=== PATIENT | female | born 1950 | race Caucasian/White ===

== ENCOUNTER 2017-12-25 12:45 | Outpatient (CLI) | payer MEDICARE, OTHER | END 2017-12-25 23:59 | disposition home health service (06) | LOC: WOU 12:45 | PROVIDERS: ATTEND Surgery | DX: L89.322 Pressure ulcer of left buttock, stage 2 (principal); L89.312 Pressure ulcer of right buttock, stage 2; K59.03 Drug induced constipation; T40.2X5A Adverse effect of other opioids, initial encounter; Y92.89 Other specified places as the place of occurrence of the external cause; R32 Unspecified urinary incontinence; Z79.891 Long term (current) use of opiate analgesic; M48.00 Spinal stenosis, site unspecified; G89.29 Other chronic pain; L89.152 Pressure ulcer of sacral region, stage 2; S92.501G Displaced unspecified fracture of right lesser toe(s), subsequent encounter for fracture with delayed healing; W01.0XXD Fall on same level from slipping, tripping and stumbling without subsequent striking against object, subsequent encounter; M20.62 Acquired deformities of toe(s), unspecified, left foot; M20.61 Acquired deformities of toe(s), unspecified, right foot | CPT/HCPCS: A6209; A6402; G0463 ==

== ENCOUNTER 2018-01-08 13:41 | Outpatient (CLI) | payer MEDICARE, OTHER | END 2018-01-08 23:59 | disposition home health service (06) | LOC: WOU 13:41 | PROVIDERS: ATTEND Surgery | DX: L89.322 Pressure ulcer of left buttock, stage 2 (principal); L89.312 Pressure ulcer of right buttock, stage 2; R32 Unspecified urinary incontinence; K59.03 Drug induced constipation; T40.605A Adverse effect of unspecified narcotics, initial encounter; Y92.9 Unspecified place or not applicable; Z88.0 Allergy status to penicillin; G89.29 Other chronic pain; M54.9 Dorsalgia, unspecified; M48.00 Spinal stenosis, site unspecified; K58.2 Mixed irritable bowel syndrome; S92.501D Displaced unspecified fracture of right lesser toe(s), subsequent encounter for fracture with routine healing; W18.40XD Slipping, tripping and stumbling without falling, unspecified, subsequent encounter; M20.62 Acquired deformities of toe(s), unspecified, left foot; M20.61 Acquired deformities of toe(s), unspecified, right foot | CPT/HCPCS: A6209; A6402; G0463 ==

== ENCOUNTER 2018-01-15 14:30 | Outpatient (CLI) | payer MEDICARE, OTHER | END 2018-01-15 23:59 | disposition home health service (06) | LOC: WOU 14:30 | PROVIDERS: ATTEND Surgery | DX: Z09 Encounter for follow-up examination after completed treatment for conditions other than malignant neoplasm (principal); Z87.2 Personal history of diseases of the skin and subcutaneous tissue; K59.03 Drug induced constipation; T40.2X5A Adverse effect of other opioids, initial encounter; Z79.891 Long term (current) use of opiate analgesic; R32 Unspecified urinary incontinence; M48.00 Spinal stenosis, site unspecified; G89.29 Other chronic pain; M20.62 Acquired deformities of toe(s), unspecified, left foot; M20.61 Acquired deformities of toe(s), unspecified, right foot; S92.501G Displaced unspecified fracture of right lesser toe(s), subsequent encounter for fracture with delayed healing; W01.0XXD Fall on same level from slipping, tripping and stumbling without subsequent striking against object, subsequent encounter; Y92.89 Other specified places as the place of occurrence of the external cause | CPT/HCPCS: A6402; G0463 ==

== ENCOUNTER → 2018-05-20 | Emergency (ER) | payer MEDICARE, OTHER ==
[~2018-05-20] VITALS: Ht 149.9 cm; Wt 49.9 kg
[~2018-05-20] MED LIST: DIAZEPAM 5 MG/ML 2 ML DISP.SYRIN IM ONE
[2018-05-20 06:00] VITALS: BP 149/69
--- NOTE | 2018-05-20 06:43 | NUR ---
pt seen by kayla mancera, with orders given.
== END | disposition home or self-care (01) ==
LOC: ER 06:01
DX: M54.5 Low back pain (principal); M48.00 Spinal stenosis, site unspecified; Z87.442 Personal history of urinary calculi; Z90.49 Acquired absence of other specified parts of digestive tract; Z88.0 Allergy status to penicillin; Z60.2 Problems related to living alone
CPT/HCPCS: 99283; A4606; Z7610

== ENCOUNTER 2018-07-03 18:54 | Inpatient (IN) | payer MEDICARE, OTHER ==
[~2018-07-03] VITALS: Ht 160 cm; Wt 61.2 kg
[2018-07-03] MEDS ORDERED: KETOROLAC TROMETHAMINE INJ 30 MG/ML VIAL IV ONE (19:30)
[2018-07-03] MEDS ORDERED: LORAZEPAM INJ 2 MG/ML VIAL IVP ONE (19:30)
[2018-07-03 19:56] LABS: BASOPHILS % (AUTO) 0.5 % (0.0-2.0); EOSINOPHILS % (AUTO) 0.6 % (0.0-6.0); HEMATOCRIT 40 % (33-45); HEMOGLOBIN 12.9 g/dL (11.5-14.8); LYMPHOCYTES # (AUTO) 1.4 /CMM (0.8-4.8); LYMPHOCYTES % (AUTO) 19.4 % (20.0-44.0); MEAN CORPUSCULAR HGB CONC 33 g/dl (31.0-36.0); MEAN CORPUSCULAR VOLUME 87 fL (82-100); MONOCYTES # (AUTO) 0.8 /CMM (0.1-1.30); MONOCYTES % (AUTO) 10.1 % (2.0-12.0); NEUTROPHILS # (AUTO) 5.3 /CMM (1.8-8.9); NEUTROPHILS % (AUTO) 69.4 % (43.0-81.0); PLATELET COUNT (AUTO) 448 /CMM (150-450); RED BLOOD CELL COUNT(AUTO) 4.56 MIL/uL (4.0-5.2); WHITE BLOOD COUNT (AUTO) 7.5 K/uL (4.3-11.0)
[2018-07-03] MEDS ORDERED: LORAZEPAM INJ 2 MG/ML VIAL IM ONE (20:00)
[2018-07-03] MEDS ORDERED: HALOPERIDOL LACTATE INJ 5 MG/ML VIAL IM ONE (20:00)
[2018-07-03 20:03] LABS: CALCIUM, SERUM 8.9 mg/dL (8.5-10.1); CARBON DIOXIDE 30 mmol/L (21-32); CHLORIDE 102 mmol/L (98-107); GLUCOSE 102 mg/dL (74-106); POTASSIUM 3.3 mmol/L (3.5-5.1); SODIUM SERUM 140 mmol/L (136-145); UREA NITROGEN, BLOOD 11 mg/dL (7-18)
[2018-07-03 20:09] LABS: ALANINE AMINOTRANSFERASE 20 U/L (12-78); ALBUMIN 3.1 g/dL (3.4-5.0); ALCOHOL, BLOOD < 3 mg/dL (0-0); ALKALINE PHOSPHATASE 132 U/L (46-116); ASPARTATE AMINOTRANSFERASE 14 U/L (15-37); BILIRUBIN,DIRECT 0.1 mg/dL (0.0-0.2); BILIRUBIN,TOTAL 0.3 mg/dL (0.2-1.0); TOTAL PROTEIN, SERUM 6.8 g/dL (6.4-8.2)
[2018-07-03 20:10] LABS: ACETAMINOPHEN < 2 ug/ml (10-30); SALICYLATE < 2.8 mg/dL (2.8-20.0)
[2018-07-03] MEDS ORDERED: HALOPERIDOL LACTATE INJ 5 MG/ML VIAL ONE (20:14)
[2018-07-03] MEDS ORDERED: LORAZEPAM INJ 2 MG/ML VIAL ONE (20:15)
--- NOTE | 2018-07-03 20:44 | NUR ---
ADMIT TO ROOM 213-A
--- NOTE | 2018-07-03 20:46 | NUR ---
ordered meds given
--- NOTE | 2018-07-03 20:46 | NUR ---
urine sample collected.
[2018-07-03 20:53] LABS: BILIRUBIN,URINE Negative (NEGATIVE); BLOOD, URINE Negative Ery/uL (NEGATIVE); COLOR,URINE Yellow (YELLOW); KETONES,URINE Negative (NEGATIVE); LEUKOCYTE ESTERASE ,URINE Negative (NEGATIVE); NITRITE, URINE Negative (NEGATIVE); PH,URINE 8.5 (5.0-8.0); PROTEIN,URINE Negative (NEGATIVE); UGLUCOSE Negative (NEGATIVE)
[2018-07-03 20:54] LABS: APPEARANCE,URINE HAZY (CLEAR)
[2018-07-03 21:09] LABS: BACTERIA,URINE Few /HPF (None Seen); RBC,URINE 0-2 /HPF (0-2); SQUAMOUS EPITHELIAL CELL,UR Few /HPF (None Seen); URINE AMORPHOUS URATE Many /HPF (None Seen); WBC,URINE 0-2 /HPF (0-3)
--- NOTE | 2018-07-03 21:39 | NUR ---
REPORT GIVEN TO GPS RN FOR Pt's DIPIKA AND SAFETY.
[2018-07-03] MEDS ORDERED: ACETAMINOPHEN 325 MG TABLET PO PRN (22:30)
[2018-07-03] MEDS ORDERED: MAGNESIUM HYDROXIDE 30 ML UDC PO PRN (22:30)
[2018-07-03] MEDS ORDERED: MAG HYDROX/AL HYDROX/SIMETH 30 ML UDC PO PRN (22:30)
[2018-07-03] MEDS: TEMAZEPAM 7.5 MG CAPSULE PO PRN (22:49)
[2018-07-04] MEDS: LORAZEPAM 0.5 MG TABLET PO PRN ×2 (01:27→15:49)
--- NOTE | 2018-07-04 05:07 | NUR ---
ADMITTED THIS 67 YEARS OLD FEMALE FROM E.R PATIENT ACCOMPANIED BY E.R STAFF, PATIENT WAS PLACE ON 5150 HOLD DUE TO GRAVELY DISABLE, PSYCHOSIS,NOS PATIENT IS ALERT, X 2-3 AMBULATORY WITH STEADY GAIT, SINCE PATIENT GOT ADMITTED PATIENT IS YELLING SCREAMING, NON- STOP ATIVAN 0.5 MG AND RESTORIL ADMINISTERED TO THE PATIENT BUT NON- EFFECTIVE, PATIENT CONTINUES SCREAMING, WHEN ASK PATIENT WHY SHE IS SCREAMING PATIENT RESPONSE I DON'T KNOW SKIN ASSESSMENT IS DONE PATIENT HAS A BRUISES, AND SCAB IN HER RIGHT HAND AND RIGHT KNEE, OPEN SKIN IN SACRAL AREA PIC IS TAKEN AND PLACED IN CHART WOUND CONSULT ORDER Z-GUARD ORDER WILL CONTINUES TO MAKE EVERY 15 MINS ROUND FOR PATIENTS SAFETY AND FALL .
[2018-07-04] MEDS ORDERED: GABA-534 PO (06:34)
[2018-07-04] MEDS ORDERED: ALPR0.255 PO (06:34)
[2018-07-04] MEDS ORDERED: DICY20TA11 PO (06:34)
[2018-07-04] MEDS ORDERED: LUBI24CA5 PO (06:34)
[2018-07-04] MEDS ORDERED: LEVO500T75 PO (06:34)
[2018-07-04 08:00] VITALS: BP 125/58
--- NOTE | 2018-07-04 11:31 | NUR ---
PT AT THIS TIME WAS NOTED TO HAVE 3 KYLE ON THE BACK OF THE HEAD
[2018-07-04] MEDS ORDERED: POTASSIUM CHLORIDE 20 MEQ TAB.PRT.SR PO ONE (14:00)
[2018-07-04] MEDS: LEVOFLOXACIN (500MG) 500 MG TABLET PO SCH (14:00)
[2018-07-04 16:00] VITALS: BP 122/66
[2018-07-04] MEDS: DICYCLOMINE HCL 10 MG CAPSULE PO SCH (16:03)
[2018-07-04] MEDS: GABAPENTIN 100 MG CAPSULE PO SCH (16:03)
[2018-07-04 19:56] VITALS: BP 121/59
[2018-07-04] MEDS: IBUPROFEN 400 MG TABLET PO PRN (20:20)
[2018-07-04] MEDS: MIRTAZAPINE 15 MG TABLET PO SCH (20:21)
[2018-07-04] MEDS: TEMAZEPAM 7.5 MG CAPSULE PO PRN (22:25)
[2018-07-05] MEDS: IBUPROFEN 400 MG TABLET PO PRN ×3 (02:02→20:42)
[2018-07-05 06:55] LABS: CHOLESTEROL 205 mg/dL (<200); CREATININE 0.6 mg/dL (0.6-1.3); HDL CHOLESTEROL 65 mg/dL (40-60); LDL 127 mg/dL (0-99); TRIGLYCERIDES 92 mg/dL (30-150)
[2018-07-05 08:00] VITALS: BP 142/85
[2018-07-05] MEDS ORDERED: GABAPENTIN 300 MG CAPSULE PO SCH (09:00)
[2018-07-05] MEDS: GABAPENTIN 100 MG CAPSULE PO SCH ×2 (09:11→17:29)
[2018-07-05] MEDS: LEVOFLOXACIN (500MG) 500 MG TABLET PO SCH (09:12)
[2018-07-05] MEDS: DICYCLOMINE HCL 10 MG CAPSULE PO SCH ×3 (09:12→17:29)
--- NOTE | 2018-07-05 09:30 | NUR ---
GPS/RN-NOTES DID BODY ASSESSMENT TO THE PATIENT AND PICTURES TAKEN AND PUT IN THE CHART.
--- NOTE | 2018-07-05 12:30 | NUR ---
GPS/RN-NOTES PATIENT SISTER ALMA VEGA .CALLED AND WANTS TO KNOW THE STATUS OF THE PATIENT. PATIENT SIGN CONSENT TO RELEASED INFORMATION TO HER SISTER.
--- NOTE | 2018-07-05 14:47 | NUR ---
GPS/RN-NOTES PATIENT C/O LOWER BACK PAIN. MOTRIN 400MG P.O GIVEN PRN ORDER. WILL CONT. MONITORING FOR SAFETY AND BEHAVIOR.
[2018-07-05 17:25] VITALS: BP 102/74
[2018-07-05] MEDS: LORAZEPAM 0.5 MG TABLET PO PRN (17:29)
--- NOTE | 2018-07-05 17:30 | NUR ---
GPS/RN-NOTES NOTED PATIENT WITH SCREAMING AND YELLING, UNABLE TO REDIRECT. ATIVAN 0.5MG P.O GIVEN PRN ORDER. WILL CONT. ON 1:1 MONITORING FOR SAFETY AND BEHAVIOR.
--- NOTE | 2018-07-05 19:30 | NUR ---
RN INITIAL NOTES: RECEIVED REPORT, PT IN BED, A/O X2, 1:1 SITTER AT BED SIDE, PT IS CALM AT THIS TIME, COOPERATIVE BUT PER REPORT WITH EPISODE OF SCREAMING ANDYELLING. PT NEEDS FREQUENT REDIRECTION. ENCOURAGED AND HELPED REPOSITIONING EVERY 2 HRS. PT COMPLIANT WITH MEDICATION, SWALLOWS PILLS WHOLE. DENIES ANY SI/HI. WILL CONTINUE MONITORING PT SAFETY Q15 MINS AND FOR ANY CHANGES IN BEHAVIOR.
[2018-07-05 20:00] VITALS: BP 122/56
[2018-07-05] MEDS: MIRTAZAPINE 15 MG TABLET PO SCH (20:12)
--- NOTE | 2018-07-05 20:43 | NUR ---
PRN MOTRIN: PT C/O GENERALIZED PAIN, 12/02 REQUESTING FOR HER MOTRIN, PRN MOTRIN ADMINISTERED AT THIS TIME, WILL CONTINUE TO MONITOR AND REASSESS PT
[2018-07-05] MEDS: ATORVASTATIN 10 MG TABLET PO SCH (21:14)
[2018-07-05] MEDS: TEMAZEPAM 7.5 MG CAPSULE PO PRN (21:27)
--- NOTE | 2018-07-05 21:27 | NUR ---
PRN REQUEST FOR RESTORIL: PT REQUESTING FOR SLEEPING PILL, PRN RESTORIL ADMINISTERED AT THIS TIME.
[2018-07-06] MEDS: IBUPROFEN 400 MG TABLET PO PRN ×2 (04:06→16:21)
--- NOTE | 2018-07-06 04:06 | NUR ---
PRN MOTRIN: PT C/O BODY ACHE GENERALIZED PRN MOTRIN ADMINISTERED AT THIS TIME.
[2018-07-06] MEDS: LORAZEPAM 0.5 MG TABLET PO PRN ×2 (05:10→14:07)
--- NOTE | 2018-07-06 05:10 | NUR ---
PRN ATIVAN: REQUESTED BY PT FOR C/O ANXIOUSNESS, PRN ATIVAN ADMINISTERED AT THIS TIME
[2018-07-06 08:00] VITALS: BP 120/76
[2018-07-06] MEDS: LEVOFLOXACIN (500MG) 500 MG TABLET PO SCH (08:42)
[2018-07-06] MEDS: GABAPENTIN 100 MG CAPSULE PO SCH ×2 (08:42→12:26)
[2018-07-06] MEDS: DICYCLOMINE HCL 10 MG CAPSULE PO SCH ×3 (08:42→16:20)
[2018-07-06] MEDS ORDERED: Z GUARD REMEDY 4 OZ OINT TP PRN (10:30)
[2018-07-06] MEDS ORDERED: HYDROGEL DRESSING 90 GM TUBE TP PRN (10:30)
--- NOTE | 2018-07-06 10:30 | NUR ---
WOUND CARE CONSULT: PT PRESENTS WITH SACRAL ULCER, UNSTAGEABLE AND BILATERAL FOOT BUNIONS WITH SCARRING, PRESENT ON ADMISSION. PT HAS MULTIPLE SCARS ON BODY. PT ABLE TO TURN AND REPOSITION IN BED AND AMBULATORY BUT INCONTINENT. ALL SKIN PROTECTION AND WOUND CARE RECOMMENDATIONS DISCUSSED WITH NURSING STAFF AND SURGICAL TEAM. WILL SEE PRN. AYALA IN AGREEMENT WITH PLAN OF CARE. Addendum: 07/06/18 at 1032 by KARLA FUENTES WNDNU Amended: Links added.
[2018-07-06 11:22] LABS: BASOPHILS # (AUTO) 0.1 /CMM (0.0-0.2); EOSINOPHILS % (AUTO) 0.4 % (0.0-6.0); HEMATOCRIT 40 % (33-45); HEMOGLOBIN 12.8 g/dL (11.5-14.8); LYMPHOCYTES # (AUTO) 1.3 /CMM (0.8-4.8); LYMPHOCYTES % (AUTO) 20.7 % (20.0-44.0); MEAN CORPUSCULAR HGB CONC 32 g/dl (31.0-36.0); MEAN CORPUSCULAR VOLUME 89 fL (82-100); MONOCYTES # (AUTO) 0.6 /CMM (0.1-1.30); MONOCYTES % (AUTO) 10.4 % (2.0-12.0); NEUTROPHILS # (AUTO) 4.1 /CMM (1.8-8.9); NEUTROPHILS % (AUTO) 67.5 % (43.0-81.0); PLATELET COUNT (AUTO) 394 /CMM (150-450); RDW COEFFICIENT OF VARIATION 15.6 (11.5-15.0); RED BLOOD CELL COUNT(AUTO) 4.44 MIL/uL (4.0-5.2); WHITE BLOOD COUNT (AUTO) 6.1 K/uL (4.3-11.0)
--- NOTE | 2018-07-06 11:23 | NUR ---
ISIDORO called the pt's sister, Morena ([phone]), and conducted parts of the assessment with her because the pt was confused. The initial discharge plan for the pt to return to [facility] was discussed.
--- NOTE | 2018-07-06 11:25 | NUR ---
Initial Discharge Plan: Pt was admitted from a longterm facility called [facility] located at [address] [place] [address]; . Per pt, she did not state whether or not she would want to return to the facility. SW contacted the facility and was told that she would be assessed and then her return to the facility is contingent upon the assessment. ISIDORO will work with the pt and the MD regarding discharge planning. SW will form a safe and proper discharge.
--- NOTE | 2018-07-06 11:25 | NUR ---
ISIDORO called [facility] and spoke to Gisela ([phone]) who stated that she will come to assess the pt later today even though she is aware that the pt is not ready for discharge at this moment.
--- NOTE | 2018-07-06 11:41 | NUR ---
ISIDORO received a call from the pt's doctor's office, Dr. Blood ([phone]). ISIDORO put them on hold and asked the pt if it would be authorized to speak to them about her current state. The pt consented. ISIDORO informed Margot from Dr. Blood's office that the pt is no longer screaming and has been cooperative with the medications. The SW then informed them that the plan is for her to return to the previous facility and that there is no discharge date as of right now.
[2018-07-06 12:06] LABS: ALBUMIN 3.1 g/dL (3.4-5.0); BILIRUBIN,TOTAL 0.4 mg/dL (0.2-1.0); CREATININE 0.7 mg/dL (0.6-1.3); MAGNESIUM 2.2 mg/dL (1.8-2.4); POTASSIUM 3.6 mmol/L (3.5-5.1); TOTAL PROTEIN, SERUM 6.8 g/dL (6.4-8.2)
[2018-07-06] MEDS: HYDROGEL DRESSING 90 GM TUBE TP SCH ×2 (12:17→12:19)
[2018-07-06] MEDS: Z GUARD REMEDY 2 OZ OINT TP SCH (12:22)
--- NOTE | 2018-07-06 14:27 | NUR ---
GPS/RN-NOTES PATIENT STATED" I WANT MY ATIVAN". ATIVAN 0.5MG P.O GIVEN PRN ORDER. WILL CONT. ON 1:1 MONITORING FOR SAFETY AND BEHAVIOR.
[2018-07-06 16:00] VITALS: BP 122/72
--- NOTE | 2018-07-06 16:27 | NUR ---
GPS/RN-NOTES PATIENT C/O LOWER BACK PAIN. MOTRIN 400MG P.O GIVEN PRN ORDER. ON 1:1 MONITORING FOR SAFETY
[2018-07-06] MEDS ORDERED: GABAPENTIN 100 MG CAPSULE PO SCH (17:00)
--- NOTE | 2018-07-06 17:53 | NUR ---
GPS/RN-NOTES SEEN BY DR. BOWIE (PAIN MANAGEMENT)
[2018-07-06 20:00] VITALS: BP 122/73
[2018-07-06] MEDS: MIRTAZAPINE 15 MG TABLET PO SCH (20:16)
[2018-07-06] MEDS: HYDROCODONE/APAP 5/325MG 1 EACH TABLET PO PRN (20:17)
[2018-07-06] MEDS: ATORVASTATIN 10 MG TABLET PO SCH (21:26)
[2018-07-06] MEDS: TEMAZEPAM 7.5 MG CAPSULE PO PRN (21:27)
[2018-07-06] MEDS: DULOXETINE HCL 30 MG CAPSULE.DR PO SCH (21:27)
[2018-07-07] MEDS: HYDROCODONE/APAP 10/325MG 1 EA TABLET PO PRN ×2 (00:48→19:36)
[2018-07-07] MEDS: IBUPROFEN 400 MG TABLET PO PRN ×2 (04:37→22:27)
[2018-07-07] MEDS: HYDROCODONE/APAP 5/325MG 1 EACH TABLET PO PRN ×2 (05:56→14:27)
[2018-07-07 08:00] VITALS: BP 127/71
[2018-07-07] MEDS: LEVOFLOXACIN (500MG) 500 MG TABLET PO SCH (08:45)
[2018-07-07] MEDS: GABAPENTIN 100 MG CAPSULE PO SCH ×3 (08:45→16:52)
[2018-07-07] MEDS: DICYCLOMINE HCL 10 MG CAPSULE PO SCH ×3 (08:45→16:52)
[2018-07-07] MEDS: Z GUARD REMEDY 2 OZ OINT TP SCH (08:48)
[2018-07-07] MEDS: HYDROGEL DRESSING 90 GM TUBE TP SCH (11:09)
--- NOTE | 2018-07-07 11:41 | NUR ---
GPS/RN-NOTES PAINTING DEPARTMENT SUPERVISOR WAS NOT IN THE UNIT AT THIS TIME.
[2018-07-07 16:11] VITALS: BP 132/82
--- NOTE | 2018-07-07 19:36 | NUR ---
GPS-RN PATIENT C/O BACK PAIN ON A PAIN SCALE OF 8/10. ADMINISTERED NORCO 10/325MG PO ORDERED PER PT'S REQUEST. WILL CONTINUE TO MONITOR.
[2018-07-07 20:00] VITALS: BP 123/75
[2018-07-07] MEDS: MIRTAZAPINE 15 MG TABLET PO SCH (20:05)
[2018-07-07] MEDS: DULOXETINE HCL 30 MG CAPSULE.DR PO SCH (21:16)
[2018-07-07] MEDS: ATORVASTATIN 10 MG TABLET PO SCH (21:16)
[2018-07-07] MEDS: TEMAZEPAM 7.5 MG CAPSULE PO PRN (22:27)
--- NOTE | 2018-07-07 22:27 | NUR ---
GPS-RN PATIENT C/O BACK PAIN, ON A PAIN SCALE OF 3/10. ADMINISTERED MOTRIN 400MG PO ORDERED PER PT'S REQUEST. WILL CONTINUE TO MONITOR.
[2018-07-08] MEDS: HYDROCODONE/APAP 5/325MG 1 EACH TABLET PO PRN ×3 (01:27→15:40)
--- NOTE | 2018-07-08 01:27 | NUR ---
GPS-RN PATIENT C/O BACK PAIN, ON A PAIN SCALE OF 7/10. ADMINISTERED NORCO 5/325MG PO ORDERED PER PT'S REQUEST. WILL CONTINUE TO MONITOR.
[2018-07-08] MEDS: LEVOFLOXACIN (500MG) 500 MG TABLET PO SCH (08:40)
[2018-07-08] MEDS: GABAPENTIN 100 MG CAPSULE PO SCH ×4 (08:40→17:18)
[2018-07-08 08:41] VITALS: BP 150/72
[2018-07-08] MEDS: DICYCLOMINE HCL 10 MG CAPSULE PO SCH ×3 (08:41→17:18)
[2018-07-08] MEDS: Z GUARD REMEDY 2 OZ OINT TP SCH (08:44)
--- NOTE | 2018-07-08 08:44 | NUR ---
RN - MANUAL ADMIN NOTES Unable to scan Z-guard. Please see Mauri STEVENS
[2018-07-08] MEDS: LORAZEPAM 0.5 MG TABLET PO PRN ×2 (11:46→21:02)
--- NOTE | 2018-07-08 11:46 | NUR ---
SA RN - PRN NOTES Patient is agitated and restless and requested for Ativan.
[2018-07-08 16:00] VITALS: BP 102/55
[2018-07-08 20:00] VITALS: BP 114/71
[2018-07-08] MEDS: MIRTAZAPINE 15 MG TABLET PO SCH (20:31)
--- NOTE | 2018-07-08 21:02 | NUR ---
GPS-RN PATIENT C/O FEELING ANXIOUS AND REQUESTED FOR ATIVAN. ADMINISTERED ATIVAN 0.5MG PO ORDERED. WILL CONTINUE TO MONITOR [id number] FOR SAFETY AND BEHAVIOR.
[2018-07-08] MEDS: ATORVASTATIN 10 MG TABLET PO SCH (21:15)
[2018-07-08] MEDS: DULOXETINE HCL 30 MG CAPSULE.DR PO SCH (21:15)
[2018-07-08] MEDS: IBUPROFEN 400 MG TABLET PO PRN (21:41)
--- NOTE | 2018-07-08 21:41 | NUR ---
GPS-RN PATIENT C/O BACK PAIN, ON A PAIN SCALE OF 3/10. ADMINISTERED MOTRIN 400MG PO ORDERED PER PT'S REQUEST. WILL CONTINUE TO MONITOR.
[2018-07-08] MEDS: TEMAZEPAM 7.5 MG CAPSULE PO PRN (21:46)
[2018-07-09] MEDS: HYDROCODONE/APAP 5/325MG 1 EACH TABLET PO PRN ×2 (00:01→14:15)
--- NOTE | 2018-07-09 00:02 | NUR ---
GPS-RN PATIENT C/O BACK PAIN, ON A PAIN SCALE OF 7/10. ADMINISTERED NORCO 5/325MG PO ORDERED PER PT'S REQUEST. WILL CONTINUE TO MONITOR.
[2018-07-09] MEDS: HYDROCODONE/APAP 10/325MG 1 EA TABLET PO PRN (04:28)
--- NOTE | 2018-07-09 04:28 | NUR ---
GPS-RN PATIENT C/O LOWER BACK PAIN ON A PAIN SCALE OF 8/10. ADMINISTERED NORCO 10/325MG PO ORDERED PER PT'S REQUEST. WILL CONTINUE TO MONITOR AND REASSESS FOR PAIN.
[2018-07-09] MEDS: LORAZEPAM 0.5 MG TABLET PO PRN ×2 (06:04→16:05)
--- NOTE | 2018-07-09 06:07 | NUR ---
GPS-RN PATIENT C/O FEELING ANXIOUS AND REQUESTED FOR ATIVAN. ADMINISTERED ATIVAN 0.5MG PO ORDERED. WILL CONTINUE TO MONITOR [id number] FOR SAFETY AND BEHAVIOR.
[2018-07-09 08:00] VITALS: BP 100/57
[2018-07-09] MEDS: DICYCLOMINE HCL 10 MG CAPSULE PO SCH ×3 (08:44→17:00)
[2018-07-09] MEDS: GABAPENTIN 100 MG CAPSULE PO SCH ×3 (08:44→17:00)
[2018-07-09] MEDS: HYDROGEL DRESSING 90 GM TUBE TP SCH (08:45)
[2018-07-09] MEDS: Z GUARD REMEDY 2 OZ OINT TP SCH (08:46)
--- NOTE | 2018-07-09 15:10 | NUR ---
SW called [facility] and spoke to Gisela ([phone]) who stated that she will come to assess the pt the following day because she was unable to do so last week.
[2018-07-09 16:00] VITALS: BP 102/58
--- NOTE | 2018-07-09 16:05 | NUR ---
PT C/O ANXIETY" MEDICATED WITH ATIVAN 0.5 MG P.O X1 WILL CONTINUE TO MONITOR .
[2018-07-09 20:28] VITALS: BP 126/75
[2018-07-09] MEDS: MIRTAZAPINE 15 MG TABLET PO SCH (20:28)
[2018-07-09] MEDS ORDERED: MIRTAZAPINE 15 MG TABLET PO ONE (21:00)
[2018-07-09] MEDS: DULOXETINE HCL 30 MG CAPSULE.DR PO SCH (21:08)
[2018-07-09] MEDS: ATORVASTATIN 10 MG TABLET PO SCH (21:12)
[2018-07-09] MEDS: TEMAZEPAM 7.5 MG CAPSULE PO PRN (22:00)
[2018-07-10] MEDS: LORAZEPAM 0.5 MG TABLET PO PRN ×2 (01:09→13:55)
[2018-07-10] MEDS: DULOXETINE HCL 30 MG CAPSULE.DR PO SCH ×2 (08:20→21:09)
[2018-07-10] MEDS: GABAPENTIN 100 MG CAPSULE PO SCH ×3 (08:20→18:34)
[2018-07-10] MEDS: DICYCLOMINE HCL 10 MG CAPSULE PO SCH ×3 (08:20→16:47)
[2018-07-10] MEDS: Z GUARD REMEDY 2 OZ OINT TP SCH (08:25)
[2018-07-10] MEDS: HYDROGEL DRESSING 90 GM TUBE TP SCH (08:28)
--- NOTE | 2018-07-10 08:30 | NUR ---
ISIDORO spoke to Margot ([phone]) from Dr. Blood's office who asked to speak to the pt's nurse so the ISIDORO passed on the message.
[2018-07-10 08:40] VITALS: BP 109/59
[2018-07-10] MEDS: HYDROCODONE/APAP 10/325MG 1 EA TABLET PO PRN ×3 (09:23→23:30)
--- NOTE | 2018-07-10 09:23 | NUR ---
[id number]: GAVE NORCO 10/325 MG PO UPON PT REQUEST AND WILL CONTINUE TO MONITOR FOR EFFECTIVENESS OF MEDICATION
--- NOTE | 2018-07-10 09:44 | NUR ---
Margot ([phone]) from Dr. Blood's office called the SW and asked the SW to redirect her to the pt's nurse for the day.
--- NOTE | 2018-07-10 13:55 | NUR ---
[id number]: GAVE ATIVAN 0.5 MG PO DUE TO INCREASED ANXIETY UPON PT REQUEST AND WILL CONTINUE TO MONITOR FOR EFFECTIVENESS OF MEDICATION
--- NOTE | 2018-07-10 13:57 | NUR ---
ISIDORO spoke to Margot ([phone]) from Dr. Blood's office and informed her that the nurse for the pt today will be calling soon.
[2018-07-10 16:00] VITALS: BP 145/76
--- NOTE | 2018-07-10 16:19 | NUR ---
SW spoke to Delores Castle ([phone]), pts friend, about the pt's discharge plan.
--- NOTE | 2018-07-10 16:47 | NUR ---
[id number]: GAVE NORCO 10/325 MG PO DUE TO PT REQUEST FOR 810 GENERALIZED PAIN AND WILL CONTINUE TO MONITOR FOR EFFECTIVENESS OF MEDICATION
[2018-07-10] MEDS: MIRTAZAPINE 15 MG TABLET PO SCH (20:26)
[2018-07-10 21:03] VITALS: BP 110/83
[2018-07-10] MEDS: ATORVASTATIN 10 MG TABLET PO SCH (21:09)
[2018-07-10] MEDS: TEMAZEPAM 7.5 MG CAPSULE PO PRN (22:55)
--- NOTE | 2018-07-10 23:30 | NUR ---
[id number]: GAVE NORCO 10/325 MG PO PER PT. REQUEST FOR 810 GENERALIZED PAIN AND WILL CONTINUE TO MONITOR FOR EFFECTIVENESS OF MEDICATION
[2018-07-11 08:00] VITALS: BP 115/57
[2018-07-11] MEDS: HYDROCODONE/APAP 10/325MG 1 EA TABLET PO PRN (08:57)
[2018-07-11] MEDS: DICYCLOMINE HCL 10 MG CAPSULE PO SCH ×3 (08:57→16:28)
[2018-07-11] MEDS: Z GUARD REMEDY 2 OZ OINT TP SCH (08:58)
[2018-07-11] MEDS: DULOXETINE HCL 30 MG CAPSULE.DR PO SCH ×2 (09:01→20:49)
[2018-07-11] MEDS: HYDROGEL DRESSING 90 GM TUBE TP SCH (09:05)
[2018-07-11] MEDS: GABAPENTIN 300 MG CAPSULE PO SCH ×3 (09:50→16:28)
[2018-07-11] MEDS ORDERED: GABAPENTIN 300 MG CAPSULE PO SCH ×2 (10:00)
[2018-07-11] MEDS: LORAZEPAM 0.5 MG TABLET PO PRN ×2 (11:17→20:55)
--- NOTE | 2018-07-11 15:50 | NUR ---
ISIDORO garciaxed the most recent discharge packed to [facility] (attn: Gisela) to the fax number: [phone]. Addendum: 07/12/18 at 0928 by GASPER CHAUDHRY Packet
[2018-07-11 16:13] VITALS: BP 108/67
[2018-07-11 20:31] VITALS: BP 115/72
[2018-07-11] MEDS: MIRTAZAPINE 15 MG TABLET PO SCH (20:49)
[2018-07-11] MEDS: ATORVASTATIN 10 MG TABLET PO SCH (21:01)
[2018-07-11] MEDS: HYDROCODONE/APAP 5/325MG 1 EACH TABLET PO PRN (22:31)
[2018-07-12] MEDS: HYDROCODONE/APAP 5/325MG 1 EACH TABLET PO PRN (07:04)
[2018-07-12 08:32] VITALS: BP 129/56
[2018-07-12] MEDS: LORAZEPAM 0.5 MG TABLET PO PRN (09:14)
[2018-07-12] MEDS: DICYCLOMINE HCL 10 MG CAPSULE PO SCH ×2 (09:14→13:04)
[2018-07-12] MEDS: GABAPENTIN 300 MG CAPSULE PO SCH ×2 (09:14→13:04)
[2018-07-12] MEDS: DULOXETINE HCL 30 MG CAPSULE.DR PO SCH (09:14)
[2018-07-12] MEDS: Z GUARD REMEDY 2 OZ OINT TP SCH (09:15)
--- NOTE | 2018-07-12 09:24 | NUR ---
Gisela ([phone]), [facility], called the and stated that the pt is no longer accepted to the facility.
--- NOTE | 2018-07-12 09:28 | NUR ---
ISIDORO faxed a referral to [facility] to the fax number: [phone].
--- NOTE | 2018-07-12 09:32 | NUR ---
ISIDORO called the pt's sister, Morena ([phone]), and informed her that the pt was planned for discharge back to the facility that she came from but the facility decided not to accept her today. ISIDORO informed her that she is trying to place the pt in a facility that the psychiatrist approves of.
[2018-07-12] MEDS: HYDROCODONE/APAP 10/325MG 1 EA TABLET PO PRN (10:20)
--- NOTE | 2018-07-12 11:41 | NUR ---
Pt's friend, Keren ([phone]), called the SW and asked about the discharge plan. SW informed her that the pt will be going to [facility].
--- NOTE | 2018-07-12 12:07 | NUR ---
DR. BRUSH GAVE AN ORDER TO D/C HOLD AND D/C TO [facility] AND TO CONTINUE SAME MEDS AND TO FOLLOW UP WITH PSYCH AND MEDICAL DOCTORS.
[2018-07-12] MEDS: HYDROGEL DRESSING 90 GM TUBE TP SCH (12:34)
--- NOTE | 2018-07-12 13:22 | NUR ---
ISIDORO faxed the pain consultation notes to the pt's primary physician, Dr. Blood, to the fax number: [phone].
--- NOTE | 2018-07-12 14:00 | NUR ---
DISCHARGED PT TO [facility] VIA AMBULANCE.WITH STABLE V/S.WITH NO SI/HI.PT REMAINS ALERT AND ORIENTED AND CONFUSED.AMBULATES AD EVELYN.TX DONE TO SACRAL WOUND WITH NO S/S OF INFECTION.REPORT CALLED IN TO YARI OF [facility].
--- NOTE | 2018-07-12 14:10 | NUR ---
GRACIELA WELLS MADE AWARE OF THE DISCHARGE AND RECONCILED MEDS.
--- NOTE | 2018-07-12 16:15 | NUR ---
Discharge Note: Pt was discharged to [facility] ([facility]) located at [address] [place] [address]; ([phone]). Pt was transported via [facility] (Trip #[id number]) at 2PM. Pts sister, Morena ([phone]), and her friend, Keren ([phone]), are aware of the placement. Upon discharge, the pt was in a euthymic mood with an anxious affect. Pt was concerned about her medications and her belongings upon discharge. Pts primary physician, Dr. Blood, was notified and a discharge packet was faxed to him at [phone]. Pt denied both suicidal and homicidal ideation as well as auditory and visual hallucinations. Pt will be under the care of psychiatrist, Dr. Masters, located at [address] [address] [facility] [address], [place] [address]; and her classroom instructional aide, Dr. Hicks, located [address] [place] [address]; .
== END 2018-07-12 14:00 | DRG 876 ==
LOC: ER 19:04 → GPS 20:59
PROVIDERS: ADMIT Psychiatry & Neurology Psychosomatic Medicine
PROC: 0JB70ZZ Excision of Back Subcutaneous Tissue and Fascia, Open Approach (ICD-10-PCS; principal; 2018-07-11)
DX: F33.2 Major depressive disorder, recurrent severe without psychotic features (principal); L89.153 Pressure ulcer of sacral region, stage 3; N39.0 Urinary tract infection, site not specified; E44.1 Mild protein-calorie malnutrition; F41.9 Anxiety disorder, unspecified; K21.9 Gastro-esophageal reflux disease without esophagitis; M35.00 Sjogren syndrome, unspecified; M54.5 Low back pain; G31.83 Neurocognitive disorder with Lewy bodies; E78.5 Hyperlipidemia, unspecified; E87.6 Hypokalemia; G89.4 Chronic pain syndrome; K59.00 Constipation, unspecified; Z79.891 Long term (current) use of opiate analgesic; Z87.442 Personal history of urinary calculi; Z91.14 Patient's other noncompliance with medication regimen; Z91.81 History of falling; M48.00 Spinal stenosis, site unspecified; R45.1 Restlessness and agitation; M47.816 Spondylosis without myelopathy or radiculopathy, lumbar region; R53.1 Weakness; R26.9 Unspecified abnormalities of gait and mobility; F09 Unspecified mental disorder due to known physiological condition
CPT/HCPCS: 36415; 70450-TC; 72100-TC; 80048-TC; 80053-TC; 80061-TC; 80076-TC; 80305; 81000-TC; 82565-TC; 83735-TC; 85025-TC; A6248; A6402; G0480; J1630; J2060

== ENCOUNTER 2018-10-01 14:30 | Outpatient (CLI) | payer MEDICARE, OTHER ==
[~2018-10-01 14:30] MED LIST changes: +ALPR0.255 PO; -DIAZEPAM 5 MG/ML 2 ML DISP.SYRIN IM ONE; +DICY20TA11 PO; +GABA-534 PO; +LEVO500T75 PO; +LUBI24CA5 PO
== END 2018-10-01 23:59 | disposition home or self-care (01) ==
LOC: WOU 14:30
PROVIDERS: ATTEND Surgery
DX: Z09 Encounter for follow-up examination after completed treatment for conditions other than malignant neoplasm (principal); Z87.2 Personal history of diseases of the skin and subcutaneous tissue; M20.62 Acquired deformities of toe(s), unspecified, left foot; M20.61 Acquired deformities of toe(s), unspecified, right foot; K59.03 Drug induced constipation; G89.29 Other chronic pain; M48.00 Spinal stenosis, site unspecified; R32 Unspecified urinary incontinence; Y92.89 Other specified places as the place of occurrence of the external cause; S92.501G Displaced unspecified fracture of right lesser toe(s), subsequent encounter for fracture with delayed healing; W01.0XXD Fall on same level from slipping, tripping and stumbling without subsequent striking against object, subsequent encounter
CPT/HCPCS: G0463; Z7610

== ENCOUNTER 2019-01-07 14:46 | Inpatient (IN) | payer MEDICARE, OTHER ==
[~2019-01-07] VITALS: Ht 149.9 cm; Wt 51.7 kg
--- NOTE | 2019-01-07 14:58 | NUR ---
PT [id number], FROM HOME, S/P GLF FROM BED, C/O LOWER BACK PAIN, PT IS AAOX3, NOT IN RESPIRATORY DISTRESS, V/S STABLE, KEPT RESTED AND COMFORTABLE, WILL CONTINUE TO MONITOR.
--- NOTE | 2019-01-07 15:15 | NUR ---
PT URINE SPECIMEN COLLECTED VIA STRAIGHT CATH AND SENT TO LAB.
--- NOTE | 2019-01-07 15:20 | NUR ---
IV LINE ESTABLISHED, LABS DRAWNED AND SENT TO LAB.
--- NOTE | 2019-01-07 15:22 | NUR ---
RESPIRATORY SUPERVISOR AT BEDSIDE FOR XRAY.
[2019-01-07] MEDS ORDERED: ACETAMINOPHEN 650 MG/20.3 ML UDC ONE (15:23)
[2019-01-07] MEDS ORDERED: KETOROLAC TROMETHAMINE 15 MG/ML VIAL ONE (15:23)
[2019-01-07] MEDS ORDERED: KETOROLAC TROMETHAMINE INJ 30 MG/ML VIAL IM ONE (15:30)
[2019-01-07] MEDS ORDERED: ACETAMINOPHEN 325 MG TABLET PO ONE (15:30)
[2019-01-07] MEDS ORDERED: IV NS 0.9% 1,000 ML BAG IV ONE (15:30)
[2019-01-07] MEDS ORDERED: oxyCODONE IR immediate release 5 MG PO STA (15:41)
[2019-01-07 15:43] LABS: BASOPHILS % (AUTO) 0.1 % (0.0-2.0); HEMATOCRIT 41 % (33-45); HEMOGLOBIN 14.1 g/dL (11.5-14.8); LYMPHOCYTES # (AUTO) 0.3 /CMM (0.8-4.8); LYMPHOCYTES % (AUTO) 1.9 % (20.0-44.0); MEAN CORPUSCULAR HGB CONC 34 g/dl (31.0-36.0); MEAN CORPUSCULAR VOLUME 89 fL (82-100); MONOCYTES # (AUTO) 1.2 /CMM (0.1-1.30); MONOCYTES % (AUTO) 7.2 % (2.0-12.0); NEUTROPHILS # (AUTO) 15.3 /CMM (1.8-8.9); NEUTROPHILS % (AUTO) 90.8 % (43.0-81.0); PLATELET COUNT (AUTO) 198 /CMM (150-450); RED BLOOD CELL COUNT(AUTO) 4.63 MIL/uL (4.0-5.2); WHITE BLOOD COUNT (AUTO) 16.9 K/uL (4.3-11.0)
[2019-01-07] MEDS ORDERED: oxyCODONE/APAP (5/325 MG) 1 UDTAB TABLET ONE ×2 (15:46→15:51)
[2019-01-07 15:51] LABS: APPEARANCE,URINE SL CLOUDY (CLEAR); BILIRUBIN,URINE NEGATIVE (NEGATIVE); BLOOD, URINE 2+ Ery/uL (NEGATIVE); COLOR,URINE YELLOW (YELLOW); KETONES,URINE TRACE (NEGATIVE); LEUKOCYTE ESTERASE ,URINE 2+ (NEGATIVE); NITRITE, URINE POSITIVE (NEGATIVE); PROTEIN,URINE 2+ mg/dl (NEGATIVE); UGLUCOSE NEGATIVE (NEGATIVE); UROBILINOGEN,URINE 0.2 EU/dL (0.2)
--- NOTE | 2019-01-07 15:56 | NUR ---
PERCOCET 5/325MG PO GIVEN VERBAL ORDERED BY DR. VARNER.
--- NOTE | 2019-01-07 15:58 | NUR ---
CALLED [facility] TO HAVE X-RAY READ.
[2019-01-07 16:00] LABS: WBC,URINE 81-100 /HPF (0-3)
[2019-01-07 16:02] LABS: SQUAMOUS EPITHELIAL CELL,UR Few /HPF (None Seen)
[2019-01-07 16:04] LABS: BACTERIA,URINE 2+ /HPF (None Seen)
[2019-01-07 16:16] LABS: CALCIUM, SERUM 9.5 mg/dL (8.5-10.1); CARBON DIOXIDE 23 mmol/L (21-32); CHLORIDE 98 mmol/L (98-107); CREATININE 0.7 mg/dL (0.6-1.3); GLUCOSE 122 mg/dL (74-106); SODIUM SERUM 134 mmol/L (136-145); UREA NITROGEN, BLOOD 13 mg/dL (7-18)
[2019-01-07 16:19] LABS: ALANINE AMINOTRANSFERASE 32 U/L (12-78); ALBUMIN 3.6 g/dL (3.4-5.0); ALKALINE PHOSPHATASE 94 U/L (46-116); ASPARTATE AMINOTRANSFERASE 24 U/L (15-37); BILIRUBIN,DIRECT 0.1 mg/dL (0.0-0.2); BILIRUBIN,TOTAL 0.7 mg/dL (0.2-1.0); TOTAL PROTEIN, SERUM 7.5 g/dL (6.4-8.2)
[2019-01-07] MEDS ORDERED: CEFTRIAXONE 1 G in IV D5W 50 ML IV STA (16:32)
[2019-01-07] MEDS ORDERED: CEFTRIAXONE 1GM BAG (ER ONLY) 50 ML IV ONE (16:44)
--- NOTE | 2019-01-07 17:10 | NUR ---
REYNA SPENCER ORACLE APPLICATION ARCHITECT AT BEDSIDE FOR EVAL.
--- NOTE | 2019-01-07 17:14 | NUR ---
CALLED HOUSE SUP FOR MS BED.
[2019-01-07] MEDS ORDERED: POTASSIUM CHLORIDE 20 MEQ POWDER PACKET PO ONE ×2 (17:30→20:30)
[2019-01-07] MEDS ORDERED: ZOLPIDEM TARTRATE 5 MG TABLET PO PRN (17:30)
[2019-01-07] MEDS ORDERED: MAGNESIUM HYDROXIDE 30 ML UDC PO PRN (17:30)
--- NOTE | 2019-01-07 17:52 | NUR ---
CALLED NURSING SUP FOR MS BED. WAITING FOR CALL BACK FOR ROOM NUMBER.
--- NOTE | 2019-01-07 17:59 | NUR ---
MS BED 326 GIVEN
[2019-01-07] MEDS ORDERED: ONDANSETRON HCL/PF 4 MG/2 ML VIAL IV STA (18:28)
[2019-01-07] MEDS ORDERED: ONDANSETRON HCL/PF 4 MG/2 ML VIAL ONE (18:33)
--- NOTE | 2019-01-07 18:33 | NUR ---
GAVE REPORT TO AMBAR CINTRON.
--- NOTE | 2019-01-07 19:30 | NUR ---
MS/RN RECEIVE PATIENT AWAKE, ALERT, ORIENTED, COMFORTABLE, NO DISTRESS NOTED, CALL LIGHT IN REACH. WILL MONITOR.
[2019-01-07] MEDS: HYDROCODONE/APAP 10/325MG 1 EA TABLET PO PRN ×2 (19:46→23:28)
[2019-01-07] MEDS: IV NS 0.9% 1,000 ML IV PRN (19:47)
--- NOTE | 2019-01-07 20:00 | NUR ---
MS/MEDICAL AUDITOR DONE, PLAN OF CARE DISCUSSED WITH THE PATIENT, VERBALIZED UNDERSTANDING AND AGREEMENT. WILL CONTINUE TO MONITOR.
[2019-01-08 00:06] VITALS: BP 114/40
[2019-01-08] MEDS: KETOROLAC TROMETHAMINE INJ 30 MG/ML VIAL IV PRN ×3 (00:33→22:56)
--- NOTE | 2019-01-08 00:33 | NUR ---
MS/RN PER PATIENT PREMA IS NOT WORKING ON HER PAIN AND REQUESTING TO GET TORADOL IV ( SHE GOT TORADOL IM IN E.R.), OBTAINED ORDER OF TORADOL FROM DIMITRIOS TIWARI. TORADOL 15 MG IVP WAS GIVEN ORDERED. WILL MONITOR.
--- NOTE | 2019-01-08 01:26 | NUR ---
MS/RN PATIENT IS SLEEPING THIS TIME, AROUSABLE, APPEAR COMFORTABLE, NO SIGNS OF DISTRESS NOTED, WILL CONTINUE TO MONITOR.
[2019-01-08 02:26] VITALS: BP 114/40
[2019-01-08] MEDS: MAG HYDROX/AL HYDROX/SIMETH 30 ML UDC PO PRN (03:57)
--- NOTE | 2019-01-08 04:00 | NUR ---
MS/RN PATIENT C/O STOMACH UPSET, MAALOX WAS GIVEN ORDERED. WILL MONITOR.
[2019-01-08] MEDS: HYDROCODONE/APAP 10/325MG 1 EA TABLET PO PRN (05:21)
--- NOTE | 2019-01-08 06:50 | NUR ---
MS/RN PATIENT APPEAR SLEEPING, APPEAR COMFORTABLE, NO DISTRESS NOTED, ALL NEEDS ATTENDED AT THIS TIME, WILL CONTINUE TO MONITOR.
[2019-01-08 06:52] LABS: BASOPHILS % (AUTO) 0.1 % (0.0-2.0); HEMATOCRIT 36 % (33-45); LYMPHOCYTES # (AUTO) 0.5 /CMM (0.8-4.8); LYMPHOCYTES % (AUTO) 3.1 % (20.0-44.0); MEAN CORPUSCULAR HGB CONC 34 g/dl (31.0-36.0); MEAN CORPUSCULAR VOLUME 91 fL (82-100); MONOCYTES # (AUTO) 0.9 /CMM (0.1-1.30); MONOCYTES % (AUTO) 5.8 % (2.0-12.0); NEUTROPHILS # (AUTO) 14.2 /CMM (1.8-8.9); PLATELET COUNT (AUTO) 167 /CMM (150-450); RED BLOOD CELL COUNT(AUTO) 3.91 MIL/uL (4.0-5.2); WHITE BLOOD COUNT (AUTO) 15.6 K/uL (4.3-11.0)
[2019-01-08 07:06] LABS: CALCIUM, SERUM 8.3 mg/dL (8.5-10.1); CREATININE 0.9 mg/dL (0.6-1.3); MAGNESIUM 1.6 mg/dL (1.8-2.4); POTASSIUM 3.6 mmol/L (3.5-5.1)
--- NOTE | 2019-01-08 07:45 | NUR ---
MS RN OPENING NOTES RECEIVED PT LAYING IN BED WITH HOB ELEVATED. PT IS A/O X4, AFEBRILE. RESPIRATIONS ARE EVEN AND UNLABORED, NOT IN ANY ACUTE DISTRESS NOTED. PT DENIES ANY PAIN AT THIS TIME, NO C/O SOB, N/V. IV SITE TO RFA INTACT, NO INFILTRATION NOTED. DRESSING KEPT CLEAN AND DRY. SAFETY MEASURES ARE IN PLACE. INSTRUCTED PT TO USE CALL LIGHT WHEN ASSISTANCE IS NEEDED, CALL LIGHT IS LEFT WITHIN REACH. WILL MONITOR THROUGHOUT SHIFT FOR CONTINUITY OF CARE.
[2019-01-08 08:00] VITALS: BP_SYST 86; BP_SYST 94; BP_DIAS 49; BP_DIAS 52
[2019-01-08] MEDS: PANTOPRAZOLE 40 MG TABLET.DR PO SCH (08:40)
--- NOTE | 2019-01-08 08:40 | NUR ---
MS RN NOTES-- PT C/O STOMACH PAIN 04/03 STATING "MY STOMACH IS COLLAPSING, I WANT TORADOL." ABDOMEN IS SOFT AND NONDISTENDED, BOWEL SOUNDS ARE PRESENT UPON AUSCULTATION. NOTIFIED REYNA, IT INFRASTRUCTURE ARCHITECT AND ADMINISTERED TORADOL ORDERED.
[2019-01-08] MEDS: IV NS 0.9% 1,000 ML IV PRN (08:45)
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
--- NOTE | 2019-01-08 11:15 | NUR ---
SW filed APS for possible self-neglect. APS Intake ID #[id number].
[2019-01-08] MEDS: Magnesium 1GM/D5W 100ML PREMIX 100 ML IV SCH ×2 (11:19→12:24)
[2019-01-08] MEDS: ONDANSETRON HCL/PF 4 MG/2 ML VIAL IVP PRN ×2 (11:19→18:58)
--- NOTE | 2019-01-08 11:19 | NUR ---
MS RN NOTES-- PT C/O FEELING NAUSEOUS. ADMINISTERED ZOFRAN ORDERED. WILL CONTINUE TO MONITOR.
--- NOTE | 2019-01-08 11:32 | NUR ---
WOUND CARE CONSULT: PT PRESENTS WITH INCONTINENCE, SACRAL SCAR AND CALLUS TO RT FOOT, PRESENT ON ADMISSION. RECOMMENDATIONS MADE FOR SKIN PROTECTION. DISCUSSED WITH NURSING STAFF. PT ABLE TO ASSIST WITH TURNING AND REPOSITIONING IN BED. CURRENT PAULA SCORE IS 17. WILL SEE PRNToan AYALA IN AGREEMENT WITH PLAN OF CARE.
[2019-01-08] MEDS ORDERED: Z GUARD REMEDY 2 OZ OINT TP PRN (12:00)
[2019-01-08] MEDS: Z GUARD REMEDY 2 OZ OINT TP SCH (12:24)
[2019-01-08] MEDS: HYDROCODONE/APAP 5/325MG 1 EACH TABLET PO PRN (13:10)
[2019-01-08 16:00] VITALS: BP 82/59
[2019-01-08] MEDS ORDERED: CEFTRIAXONE 1 G in IV D5W 50 ML IV SCH (16:00)
--- NOTE | 2019-01-08 18:48 | NUR ---
MS RN CLOSING NOTES ALL DUE MEDS GIVEN, NEEDS MET AND RENDERED. PT IS A/O X4, HOWEVER CAN BE FORGETFUL AT TIMES. AFEBRILE. RESPIRATIONS ARE EVEN AND UNLABORED, NOT IN ANY ACUTE DISTRESS NOTED. PT DENIES ANY PAIN, NO C/O SOB. IV ACCESS TO RFA 20G INTACT, NO INFILTRATION NOTED. DRESSING KEPT CLEAN AND DRY. SAFETY MEASURES ARE IN PLACE. REMINDED PT TO USE CALL LIGHT WHEN ASSISTANCE IS NEEDED, CALL LIGHT IS LEFT WITHIN REACH. WILL ENDORSE TO NEXT SHIFT FOR CONTINUITY OF CARE.
[2019-01-08 20:00] VITALS: BP 100/61
[2019-01-08] MEDS: ACETAMINOPHEN 325 MG TABLET PO PRN (20:04)
--- NOTE | 2019-01-08 20:10 | NUR ---
MS/RN PATIENT IS AWAKE, ALERT, ORIENTED, C/O HEADACHE ASKED FOR TYLENOL. WILL MONITOR.
--- NOTE | 2019-01-08 21:24 | NUR ---
MS/RN RECHECKED THE TEMP, 98.1.
[2019-01-09 02:32] LABS: ABG BASE EXCESS -8.5 mmol/L; ABG OXYGEN SATURATION 98.7 % (92.0-98.5); ABG PCO2 26.4 mmHg (35.0-45.0); ABG PH 7.371 (7.350-7.450); AaDO2 525.6 mmHg; COHb 0.7 % (0.5-1.5); MetHb 0.2 % (0.0-1.5); O2Hb 97.8 % (94.0-97.0); SITE, ABG Left Radial; VENT MODE, BG NON REBREATHER
[2019-01-09] MEDS: ACETAMINOPHEN 325 MG TABLET PO PRN ×2 (02:32→17:14)
[2019-01-09] MEDS: ONDANSETRON HCL/PF 4 MG/2 ML VIAL IVP PRN ×2 (02:42→13:46)
[2019-01-09 03:03] LABS: CALCIUM, SERUM 8.9 mg/dL (8.5-10.1); CREATININE 0.9 mg/dL (0.6-1.3); MAGNESIUM 1.9 mg/dL (1.8-2.4); POTASSIUM 3.7 mmol/L (3.5-5.1)
[2019-01-09] MEDS ORDERED: MORPHINE SULFATE INJ 2 MG/ML DISP.SYRIN IV ONE (03:30)
[2019-01-09 03:38] VITALS: BP 189/72
[2019-01-09 04:38] LABS: BASOPHILS % (AUTO) 0.1 % (0.0-2.0); EOSINOPHILS % (AUTO) 0.1 % (0.0-6.0); HEMATOCRIT 37 % (33-45); HEMOGLOBIN 12.8 g/dL (11.5-14.8); LYMPHOCYTES # (AUTO) 0.1 /CMM (0.8-4.8); LYMPHOCYTES % (AUTO) 3.8 % (20.0-44.0); MEAN CORPUSCULAR HGB CONC 35 g/dl (31.0-36.0); MEAN CORPUSCULAR VOLUME 91 fL (82-100); MONOCYTES % (AUTO) 0.5 % (2.0-12.0); NEUTROPHILS # (AUTO) 3.3 /CMM (1.8-8.9); NEUTROPHILS % (AUTO) 95.5 % (43.0-81.0); PLATELET COUNT (AUTO) 154 /CMM (150-450); WHITE BLOOD COUNT (AUTO) 3.5 K/uL (4.3-11.0)
[2019-01-09 04:44] LABS: CALCIUM, SERUM 8.3 mg/dL (8.5-10.1); MAGNESIUM 1.8 mg/dL (1.8-2.4); POTASSIUM 3.4 mmol/L (3.5-5.1)
[2019-01-09] MEDS: IV NS 0.9% 1,000 ML IV PRN ×2 (04:54→18:47)
--- NOTE | 2019-01-09 05:05 | NUR ---
AT AROUND 0155, PATIENT SUDDENLY WOKE UP FROM SLEEP SHIVERING, ANXIOUS, AGITATED, DUSKY COLORED FACE, VITAL SIGNS TAKEN, BP 183/72, HR 115, RR30, TEMP 100.8 O2 SAT 88% ON RA, PATIENT WAS CONFUSED, SHIVERING. PLACED PATIENT ON 2L O2, AND THE SATURATION WAS FLUCTUATING [id number]% AND THE HR 49-115, BLOOD SUGAR 98, C/O STOMACH PAIN MAALOX WAS GIVEN. PLACED ON TELE MONITOR HR CONTINUES TO FLUCTUATE FROM 49-124, SAME WITH O2 SAT 59-96 % ON 5L O2.NC. RAPID RESPONSE WAS THEN CALLED, RAPID RESPONSE TEAM ARRIVED, O2 VIA NON REBREATHER MASK WAS ADMINISTERED BY RT, ABG WAS DONE, ATTEMPTED TO GIVE TYLENOL BUT PATIENT REFUSED. VITAL SIGNS AT 0218 BP 129/72, HR 56, RR 32, O2 SAT 93% ON NRM.PATIENT STARTED TO CALM DOWN BUT STILL C/O STOMACH PAIN. CATHEAD OPERATOR RECOMMENDED TO GET ORDER OF MORPHINE TO HELP WITH THE PAIN AND AGITATION. VITAL SIGNS AT 0243 BP 121/47, HR 92, RR28, O2 SAT 94% ON 4L O2. RAPID RESPONSE WAS CONCLUDED. CALLED [employer], LEFT MESSAGE, SENT TO TALIA DUKE NP, THE ABG RESULT. TALIA DUKE CALLED BACK AT AROUND 0303 INFORMED HIM ABOUT THE RAPID RESPONSE EVENT, ORDER OF MORPHINE 2 MG IV X1 WAS RECEIVED AND ADMINISTERED TO THE PATIENT.
--- NOTE | 2019-01-09 05:07 | NUR ---
MS/RN PATIENT IS SLEEPY AT THIS TIME, CALM AND COMFORTABLE, NO DISTRESS NOTED, CALL LIGHT IN REACH. WILL CONTINUE TO MONITOR.
[2019-01-09 06:09] LABS: BAND % (MANUAL) 18 % (0.0-5.0); LYMPHOCYTES % (MANUAL) 1 % (16-48); MONOCYTES % (MANUAL) 2 % (0-11.0); NEUTROPHILS % (MANUAL) 79 (42-76)
--- NOTE | 2019-01-09 07:40 | NUR ---
RN NOTES PATIENT A/OX4, BREATHING EVEN AND UNLABORED, NO SOB NOTED. C/O BACK PAIN 03/04. PATIENT KEPT COMFORTABLE, NEEDS ATTENDED, CALL LIGHT WITHIN REACH, WILL CONTINUE TO MONITOR.
[2019-01-09 08:00] VITALS: BP 88/53
[2019-01-09] MEDS: Z GUARD REMEDY 2 OZ OINT TP SCH (08:55)
[2019-01-09] MEDS: PANTOPRAZOLE 40 MG TABLET.DR PO SCH (08:55)
[2019-01-09] MEDS ORDERED: POTASSIUM CHLORIDE 20 MEQ TAB.PRT.SR PO SCH (11:30)
[2019-01-09] MEDS: HYDROCODONE/APAP 10/325MG 1 EA TABLET PO PRN (12:05)
[2019-01-09] MEDS ORDERED: IV NS 0.9% 500 ML IV STA (15:55)
[2019-01-09 16:00] VITALS: BP 78/43
[2019-01-09] MEDS: NITROFURANTOIN/NITROFURAN MAC 100 MG CAPSULE PO SCH (16:02)
--- NOTE | 2019-01-09 16:04 | NUR ---
RN NOTES PATIENT'S BP 78/43, REPEATED 75/40, HR 68 SPO2 93% IN ROOM AIR, PLACED O2 AT 2LPM SPO2 INCREASED TO 98%. PATIENT IS ASYMPTOMATIC, PLACED ON A TRENDELENBURG POSITION. REYNA SPENCER NP MADE AWARE, AND RECEIVED ORDER FOR NS 500ML X1 BOLUS. VS MONITORED.
--- NOTE | 2019-01-09 16:09 | NUR ---
RN NOTES REYNA SPENCER DNP AT BEDSIDE, EXAMINED PATIENT, RECEIVED ORDER TO CHANGE NS AT 100ML/HR FROM 75ML/HR. ORDER NOTED AND CARRIED OUT. PATIENT IN NO DISTRESS, SPO2 96%, BP AT THIS TIME IS 68/37. NS 500ML INFUSING. WILL CONTINUE TO MONITOR.
[2019-01-09] MEDS ORDERED: IV NS 0.9% 1,000 ML BAG IV PRN (16:30)
--- NOTE | 2019-01-09 17:15 | NUR ---
RN NOTES BP 89/39 HR 66 AT THIS TIME. PATIENT C/O MILD PAIN, GIVEN TYLENOL. PATIENT REMAINS TO BE A/OX3. NO DISTRESS NOTED. IVF NS INFUSING AT 100ML/HR. WILL CONTINUE TO MONITOR VITALS.
--- NOTE | 2019-01-09 17:45 | NUR ---
RN NOTES PATIENT'S BP 79/50 HR 66, PATIENT DENIES PAIN OR DISCOMFORT, FOUND PATIENT WITH MEDICATIONS AT BEDSIDE, ASKED PATIENT IF SHE TOOK ANY MEDICATION FROM HER BAG, BUT PATIENT DENIED. INFORMED PATIENT WE NEED TO KEEP MEDICATIONS AT PHARMACY, BUT PATIENT REFUSED AT FIRST. EXPLAINED RISKS AND BENEFITS. PATIENT FINALLY AGREED. Addendum: 01/09/19 at 1752 by KHURRAM RODGERS RN ADDENDUM: DR. REYNA SPENCER PRODUCTION OR PLANT ENGINEER MADE AWARE OF RECENT VITALS, AWAITING FOR ORDERS. PATIENT REFUSED TO GIVE MEDICATIONS AGAIN, PER PATIENT SHE WILL SEND THE MEDICATIONS HOME WITH HER ROOMMATE. CHARGE NURSE MADE AWARE.
--- NOTE | 2019-01-09 17:53 | NUR ---
RN NOTES BP AT THIS TIME SHOWS 94/50 HR 69 SPO2 96% ON 2LPM VIA NC. PATIENT ON TRENDELENBURG POSITION. NO S/SX OF DISTRESS AT THIS TIME. CALL LIGHT WITHIN REACH, WILL CONTINUE TO MONITOR.
--- NOTE | 2019-01-09 18:14 | NUR ---
RN NOTES PATIENT A/OX3, BREATHING EVEN AND UNLABORED, NO RESP DISTRESS NOTED, VS MONITORED, PATIENT'S SBP RANGES FROM 70S TO 90S. REYNA SPENCER DNP AWARE AND RECEIVED ORDERS. PATIENT ASYMPTOMATIC AT THIS TIME. KEPT COMFORTABLE, WILL CONTINUE TO MONITOR.
[2019-01-09] MEDS: MAG HYDROX/AL HYDROX/SIMETH 30 ML UDC PO PRN (18:31)
--- NOTE | 2019-01-09 19:30 | NUR ---
NONFARM ANIMAL CARETAKER OPENING NOTES RECEIVED PATIENT IN BED AWAKE, ALERT AND ORIENTED X4, VERBALLY RESPONSIVE, ABLE TO MAKE NEEDS KNOWN. BREATHING EVEN AND UNLABORED. NO SOB NOTED. ON 2LPM OXYGEN VIA NC. NO COMPLAINTS OF PAIN OR DISCOMFORT. NO FACIAL GRIMACING. IV ON LEFT WRIST G#22 INTACT AND PATENT WITH IVF INFUSING. SKIN DRY AND WARM TO TOUCH. AFEBRILE. PATIENT'S SBP BETWEEN 75-80. PATIENT IS ASYMPTOMATIC. FLUIDS RUNNING. ALL OTHER NEEDS ATTENDED TO. SAFETY MEASURES IN PLACE. CALL LIGHT WITHIN REACH. WILL CONTINUE TO MONITOR.
[2019-01-09 19:31] LABS: BASOPHILS % (AUTO) 0.1 % (0.0-2.0); EOSINOPHILS % (AUTO) 0.2 % (0.0-6.0); HEMATOCRIT 31 % (33-45); HEMOGLOBIN 10.9 g/dL (11.5-14.8); LYMPHOCYTES # (AUTO) 0.5 /CMM (0.8-4.8); LYMPHOCYTES % (AUTO) 5.1 % (20.0-44.0); MEAN CORPUSCULAR HGB CONC 35 g/dl (31.0-36.0); MEAN CORPUSCULAR VOLUME 90 fL (82-100); MONOCYTES # (AUTO) 0.4 /CMM (0.1-1.30); MONOCYTES % (AUTO) 4.6 % (2.0-12.0); NEUTROPHILS # (AUTO) 8.7 /CMM (1.8-8.9); PLATELET COUNT (AUTO) 139 /CMM (150-450); RED BLOOD CELL COUNT(AUTO) 3.47 MIL/uL (4.0-5.2); WHITE BLOOD COUNT (AUTO) 9.7 K/uL (4.3-11.0)
[2019-01-09 19:46] LABS: CALCIUM, SERUM 8.1 mg/dL (8.5-10.1); CREATININE 0.6 mg/dL (0.6-1.3); POTASSIUM 3.7 mmol/L (3.5-5.1)
[2019-01-09 20:00] VITALS: BP 78/42
[2019-01-09] MEDS: DULOXETINE HCL 30 MG CAPSULE.DR PO SCH (21:16)
[2019-01-09 21:19] VITALS: BP 88/52
[2019-01-09 22:29] VITALS: BP 91/44
[2019-01-10] VITALS (11 sets, daily range): BP systolic 82–129; BP diastolic 44–72
[2019-01-10] MEDS: ACETAMINOPHEN 325 MG TABLET PO PRN ×2 (01:15→08:51)
[2019-01-10] MEDS: IV NS 0.9% 1,000 ML IV PRN (04:35)
[2019-01-10] MEDS: ONDANSETRON HCL/PF 4 MG/2 ML VIAL IVP PRN ×3 (04:35→18:51)
[2019-01-10] MEDS: HYDROCODONE/APAP 5/325MG 1 EACH TABLET PO PRN ×2 (06:18→10:49)
--- NOTE | 2019-01-10 06:20 | NUR ---
RN MS NOTES PATIENT REFUSED TO HAVE GOWN CHANGED. PER GRANT COORDINATOR, GOWN HAS A WET SPOT, UNSURE IF URINE OR WATER BUT PATIENT REFUSED TO HAVE IT CHANGED. WILL ENDORSE TO ONCOMING NURSE.
--- NOTE | 2019-01-10 06:38 | NUR ---
MANAGER ONCOLOGY CLOSING NOTES PATIENT RESTING IN BED. LOWEST BP THROUGHOUT SHIFT WAS 78/42. LAST BP THIS AM 117/62. BREATHING EVEN AND UNLABORED. NO SOB NOTED. ON 2LPM OXYGEN VIA NC. NO COMPLAINTS OF PAIN OR DISCOMFORT. NO FACIAL GRIMACING. IV ON LEFT WRIST G#22 INTACT AND PATENT WITH IVF INFUSING. SKIN DRY AND WARM TO TOUCH. AFEBRILE. ALL OTHER NEEDS ATTENDED TO. SAFETY MEASURES IN PLACE. CALL LIGHT WITHIN REACH. WILL ENDORSE TO ONCOMING NURSE FOR DIPIKA.
--- NOTE | 2019-01-10 07:15 | NUR ---
jig operator Opening Notes Patient currently asleep, resting in bed. Semi-Fowlers position, supine. Alert and oriented x3, able to make needs known. No complaints of shortness of breath or chest pain at this time. Respirations even and unlabored on 2 L oxygen as needed, no acute distress noted. External head shipper in place: currently sinus rhythm at 62 bpm.Peripheral IV to the left wrist 22 gauge, intact, patent and infusing fluids. Updated patient on current plan of care and safety measures. Safety and fall precautions in place: bed in lowest and locked position, side rails up x2, bed alarm on, call light and personal possessions within reach. Room well lit and floor clear of items. Reminded patient of safety measures, verbalized understanding. Patient currently clean, dry and comfortable. Will continue to monitor and intervene as needed.
[2019-01-10 08:04] LABS: CALCIUM, SERUM 8.1 mg/dL (8.5-10.1); CREATININE 0.6 mg/dL (0.6-1.3); POTASSIUM 3.5 mmol/L (3.5-5.1)
[2019-01-10] MEDS: NITROFURANTOIN/NITROFURAN MAC 100 MG CAPSULE PO SCH ×2 (08:21→21:03)
[2019-01-10] MEDS: PANTOPRAZOLE 40 MG TABLET.DR PO SCH (08:21)
[2019-01-10] MEDS: Z GUARD REMEDY 2 OZ OINT TP SCH (08:56)
[2019-01-10] MEDS ORDERED: IV NS 0.9% 1,000 ML IV STA (10:33)
[2019-01-10] MEDS ORDERED: AZITHROMYCIN 250 MG TABLET PO SCH (14:00)
[2019-01-10] MEDS ORDERED: LEVOFLOXACIN 500 MG /D5W 100ML 500 MG in PREMIX 1 EA IV SCH (15:00)
--- NOTE | 2019-01-10 15:08 | NUR ---
MS transportation planner Note Patient refusing IV Levaquin as ordered by DIMITRIOS Ford. Educated about risks and benefits multiple times. 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 Will notify team about medication. Receptive to taking antibiotic by mouth as ordered. Will continue to monitor.
[2019-01-10] MEDS: HYDROCODONE/APAP 10/325MG 1 EA TABLET PO PRN ×2 (17:26→21:56)
--- NOTE | 2019-01-10 18:28 | NUR ---
MS RN Closing Notes Patient currently awake, resting in bed. Semi-Fowlers position, supine. Alert and oriented x3, able to make needs known. No complaints of shortness of breath or chest pain at this time. Respirations even and unlabored on 2 L oxygen as needed, no acute distress noted. Peripheral IV to the hand 22 gauge, intact, patent and infusing fluids. Updated patient on current plan of care and safety measures. Safety and fall precautions in place: bed in lowest and locked position, side rails up x2, bed alarm on, call light and personal possessions within reach. Room well lit and floor clear of items. Reminded patient of safety measures, verbalized understanding. Patient currently clean, dry and comfortable. Due medications given as ordered. Medications for nausea and pain control given as needed as well. Monitored vital signs frequently this shift, blood pressure stabilized. Will endorse to night stocker SAIDA Kelly for continuity of care.
--- NOTE | 2019-01-10 19:30 | NUR ---
RN MS OPENING NOTES RECEIVED PATIENT IN BED AWAKE, ALERT AND ORIENTED X4, VERBALLY RESPONSIVE, ABLE TO MAKE NEEDS KNOWN. BREATHING EVEN AND UNLABORED. NO SOB NOTED. ON 2LPM OXYGEN VIA NC. NO COMPLAINTS OF PAIN OR DISCOMFORT. NO FACIAL GRIMACING. IV ON LEFT HAND G#22 INTACT AND PATENT WITH IVF INFUSING. SKIN DRY AND WARM TO TOUCH. ALL OTHER NEEDS ATTENDED TO. SAFETY MEASURES IN PLACE. CALL LIGHT WITHIN REACH. WILL CONTINUE TO MONITOR.
--- NOTE | 2019-01-10 20:13 | NUR ---
RN MS NOTES PATIENT MADE AWARE REGARDING NEED FOR SPUTUM SAMPLE WELL URINE SAMPLE. INSTRUCTED PATIENT TO CALL NURSE WHEN SHE IS ABLE TO COLLECT SPUTUM AND/OR WHEN SHE FEELS THE NEED TO URINATE.
[2019-01-10] MEDS: DULOXETINE HCL 30 MG CAPSULE.DR PO SCH (21:03)
[2019-01-11] MEDS: ONDANSETRON HCL/PF 4 MG/2 ML VIAL IVP PRN (01:03)
[2019-01-11] MEDS: IV NS 0.9% 1,000 ML IV PRN (02:43)
[2019-01-11] MEDS: MAG HYDROX/AL HYDROX/SIMETH 30 ML UDC PO PRN (03:32)
[2019-01-11 05:46] VITALS: BP 103/57
--- NOTE | 2019-01-11 05:46 | NUR ---
RN MS NOTES PATIENT REFUSED TO HAVE BEDSHEETS AND GOWN CHANGED THIS AM. PER PATIENT SHE DOESNT FEEL TOO WELL TO BE MOVING AROUND.
--- NOTE | 2019-01-11 06:51 | NUR ---
RN MS CLOSING NOTES PATIENT RESTING IN BED. NO ACUTE CHANGES THROUGHOUT SHIFT. BREATHING EVEN AND UNLABORED. NO SOB NOTED. ON 2LPM OXYGEN VIA NC WITH EPISODES OF TAKING IT OFF DUE TO IT FEELING UNCOMFORTABLE. CURRENTLY WITH NO COMPLAINTS OF PAIN OR DISCOMFORT. NO FACIAL GRIMACING. IV ON LEFT HAND G#22 INTACT AND PATENT WITH IVF INFUSING. SKIN DRY AND WARM TO TOUCH. AFEBRILE. ALL OTHER NEEDS ATTENDED TO. SAFETY MEASURES IN PLACE. CALL LIGHT WITHIN REACH. WILL ENDORSE TO ONCOMING NURSE FOR DIPIKA.
[2019-01-11 07:31] LABS: BASOPHILS % (AUTO) 0.1 % (0.0-2.0); EOSINOPHILS % (AUTO) 0.2 % (0.0-6.0); HEMATOCRIT 36 % (33-45); HEMOGLOBIN 12.4 g/dL (11.5-14.8); LYMPHOCYTES # (AUTO) 0.3 /CMM (0.8-4.8); LYMPHOCYTES % (AUTO) 3.7 % (20.0-44.0); MEAN CORPUSCULAR HGB CONC 35 g/dl (31.0-36.0); MEAN CORPUSCULAR VOLUME 89 fL (82-100); MONOCYTES # (AUTO) 0.5 /CMM (0.1-1.30); MONOCYTES % (AUTO) 6.3 % (2.0-12.0); NEUTROPHILS # (AUTO) 7.7 /CMM (1.8-8.9); NEUTROPHILS % (AUTO) 89.7 % (43.0-81.0); PLATELET COUNT (AUTO) 151 /CMM (150-450); RED BLOOD CELL COUNT(AUTO) 4.04 MIL/uL (4.0-5.2); WHITE BLOOD COUNT (AUTO) 8.6 K/uL (4.3-11.0)
[2019-01-11 07:57] LABS: CALCIUM, SERUM 8.2 mg/dL (8.5-10.1); CREATININE 0.6 mg/dL (0.6-1.3); MAGNESIUM 1.9 mg/dL (1.8-2.4); POTASSIUM 2.9 mmol/L (3.5-5.1)
[2019-01-11 08:00] VITALS: BP 84/46
[2019-01-11] MEDS ORDERED: POTASSIUM CHLORIDE 20 MEQ POWDER PACKET PO ONE (08:30)
[2019-01-11] MEDS ORDERED: LEVOFLOXACIN (500MG) 500 MG TABLET PO SCH (08:30)
[2019-01-11] MEDS: NITROFURANTOIN/NITROFURAN MAC 100 MG CAPSULE PO SCH (09:12)
[2019-01-11] MEDS: PANTOPRAZOLE 40 MG TABLET.DR PO SCH (09:12)
[2019-01-11] MEDS: Z GUARD REMEDY 2 OZ OINT TP SCH (09:14)
[2019-01-11 15:25] VITALS: BP 141/80
--- NOTE | 2019-01-11 16:00 | NUR ---
MS mdm sr Notes Patient currently awake, resting in bed. Semi-Fowlers position, supine. Alert and oriented x3, able to make needs known. Vital signs stable, no acute events. No complaints of shortness of breath or chest pain at this time. Respirations even and unlabored on room air, no acute distress noted. Peripheral IV to the left hand 22 gauge removed with catheter tip intact. No redness, swelling or bleeding of the site noted. Patient refused full skin assessment per protocol however, allowed photo documentation of sacrum site after education. Photo placed in chart. Patient currently clean, dry comfortable and in own clothing. Discharged with all personal belongings as documented on personal belongings form. Roommate took some items home. Discharge forms, education and instructions given to patient; acknowledged via signature on discharge form. All questions answered at this time. Patient was discharged to [facility]; called to give report to SAIDA Acosta from accepting facility. Escorted off unit via gurney with EMT transport; escorted out of hospital and transported to facility via [facility] protocol.
== END 2019-01-11 16:03 | DRG 871 ==
LOC: ER 14:53 → MED 18:08 → TELE 01-09 18:21 → MED 01-10 08:50
PROVIDERS: ADMIT Nurse Practitioner Acute Care; ATTEND Nurse Practitioner Acute Care
DX: A41.9 Sepsis, unspecified organism (principal); J18.9 Pneumonia, unspecified organism; E44.0 Moderate protein-calorie malnutrition; E87.1 Hypo-osmolality and hyponatremia; N39.0 Urinary tract infection, site not specified; F33.2 Major depressive disorder, recurrent severe without psychotic features; F41.9 Anxiety disorder, unspecified; G89.29 Other chronic pain; E87.6 Hypokalemia; G31.83 Neurocognitive disorder with Lewy bodies; M35.00 Sjogren syndrome, unspecified; B96.20 Unspecified Escherichia coli [E. coli] as the cause of diseases classified elsewhere; D72.829 Elevated white blood cell count, unspecified; E83.42 Hypomagnesemia; K21.9 Gastro-esophageal reflux disease without esophagitis; M48.00 Spinal stenosis, site unspecified; F09 Unspecified mental disorder due to known physiological condition; Z68.23 Body mass index [BMI] 23.0-23.9, adult; E86.1 Hypovolemia; M41.9 Scoliosis, unspecified; M51.36 Other intervertebral disc degeneration, lumbar region; E78.5 Hyperlipidemia, unspecified; I10 Essential (primary) hypertension; Z88.0 Allergy status to penicillin; Z88.2 Allergy status to sulfonamides; W19.XXXA Unspecified fall, initial encounter; Y92.89 Other specified places as the place of occurrence of the external cause
CPT/HCPCS: 36415; 36600; 71045-TC; 80048-TC; 80061-TC; 80076-TC; 81000-TC; 82962-TC; 83605-TC; 83735-TC; 84100-TC; 84484-TC; 85025-TC; 85730-TC; 87040-TC; 87081-TC; 87086-TC; 87186-TC; 97110-TC; 97116-TC; 97530-TC; A4216; G0378; J0696; J1885; J1956; J2270; J2405; J3475; J7030; J7040; J7060

== ENCOUNTER 2023-03-01 12:35 | Inpatient (IN) | payer MEDICARE, OTHER ==
[~2023-03-01] VITALS: Ht 149.9 cm; Wt 59.0 kg
[~2023-03-01 12:35] MED LIST changes: -LEVO500T75 PO
--- NOTE | 2023-03-01 12:50 | NUR ---
IV INSERTED LAC,20G , BLD DRAWN, SENT TO LAB
[2023-03-01] MEDS ORDERED: IV NS 0.9% 500 ML BAG IV ONE (13:00)
[2023-03-01 13:17] LABS: BASOPHILS % (AUTO) 0.4 % (0.0-2.0); EOSINOPHILS % (AUTO) 0.6 % (0.0-6.0); HEMATOCRIT 43 % (33-45); HEMOGLOBIN 13.9 g/dL (11.5-14.8); LYMPHOCYTES # (AUTO) 1.6 K/uL (0.8-4.8); LYMPHOCYTES % (AUTO) 17.8 % (20.0-44.0); MEAN CORPUSCULAR HGB CONC 33 g/dl (31.0-36.0); MEAN CORPUSCULAR VOLUME 85 fL (82-100); MONOCYTES # (AUTO) 0.5 K/uL (0.1-1.30); MONOCYTES % (AUTO) 5.4 % (2.0-12.0); NEUTROPHILS # (AUTO) 6.8 K/uL (1.8-8.9); NEUTROPHILS % (AUTO) 75.8 % (43.0-81.0); PLATELET COUNT (AUTO) 378 K/uL (150-450); RED BLOOD CELL COUNT(AUTO) 4.99 MIL/uL (4.0-5.2)
--- NOTE | 2023-03-01 13:28 | NUR ---
COVID SWAB TAKEN SENT TO LAB
[2023-03-01] MEDS ORDERED: FURO20TA4 PO (14:13)
[2023-03-01] MEDS ORDERED: ACET-868 PO (14:13)
[2023-03-01] MEDS ORDERED: HYDR2TAB7 PO (14:13)
[2023-03-01] MEDS ORDERED: ONDA4TAB11 PO (14:13)
[2023-03-01] MEDS ORDERED: MAGN400O6 PO (14:13)
[2023-03-01] MEDS ORDERED: OXYC1TAB12 PO (14:13)
[2023-03-01] MEDS ORDERED: NALO4SPR (14:13)
[2023-03-01] MEDS ORDERED: ASPI-1420 PO (14:13)
[2023-03-01] MEDS ORDERED: METO10TA3 PO (14:13)
[2023-03-01] MEDS ORDERED: OXYC15TA2 PO (14:13)
[2023-03-01] MEDS ORDERED: CLON0.1T PO (14:13)
[2023-03-01] MEDS ORDERED: FAMO40TA7 PO (14:13)
[2023-03-01] MEDS ORDERED: BISA10SU11 RC (14:13)
[2023-03-01] MEDS ORDERED: BACL10TA PO (14:13)
[2023-03-01] MEDS ORDERED: PANT40TA49 PO (14:13)
[2023-03-01] MEDS ORDERED: DULO60CA64 PO (14:13)
[2023-03-01] MEDS ORDERED: DOCU-141 PO (14:13)
[2023-03-01] MEDS ORDERED: ALBU8.5H8 IH (14:13)
[2023-03-01] MEDS ORDERED: DICL100G34 TP (14:13)
[2023-03-01] MEDS ORDERED: ROSU5TAB13 PO (14:13)
[2023-03-01] MEDS ORDERED: LIDO30AD10 TP (14:13)
[2023-03-01] MEDS ORDERED: NA P133E RC (14:13)
[2023-03-01] MEDS ORDERED: AMLO-212 PO (14:13)
[2023-03-01 14:38] LABS: SERUM AMMONIA 22 umol/L (11-32)
[2023-03-01 14:40] LABS: CALCIUM, SERUM 9.1 mg/dL (8.5-10.1); CARBON DIOXIDE 27 mmol/L (21-32); CHLORIDE 105 mmol/L (98-107); CREATININE 0.6 mg/dL (0.6-1.3); GLUCOSE 100 mg/dL (74-106); POTASSIUM 3.9 mmol/L (3.5-5.1); SODIUM SERUM 142 mmol/L (136-145); UREA NITROGEN, BLOOD 15 mg/dL (7-18)
[2023-03-01 14:47] LABS: ALANINE AMINOTRANSFERASE 27 U/L (12-78); ALKALINE PHOSPHATASE 102 U/L (46-116); ASPARTATE AMINOTRANSFERASE 28 U/L (15-37); BILIRUBIN,DIRECT 0.1 mg/dL (0.0-0.2); BILIRUBIN,TOTAL 0.4 mg/dL (0.2-1.0); TOTAL PROTEIN, SERUM 5.9 g/dL (6.4-8.2)
[2023-03-01 14:51] LABS: ALCOHOL, BLOOD < 3 mg/dL (0-10)
--- NOTE | 2023-03-01 15:22 | NUR ---
URINE COLLECTED AND SENT TO LAB
[2023-03-01 15:23] LABS: THYROID STIMULATING HORMONE 2.437 uIU/mL (0.358-3.74)
[2023-03-01] MEDS ORDERED: MEROPENEM 1,000 MG in IV NS 0.9% 100 ML IV ONE (16:00)
[2023-03-01] MEDS ORDERED: MAGNESIUM HYDROXIDE 30 ML UDC PO PRN (16:30)
[2023-03-01] MEDS ORDERED: LORAZEPAM INJ 2 MG/ML VIAL IV ONE (16:30)
[2023-03-01] MEDS ORDERED: ONDANSETRON HCL/PF 4 MG/2 ML VIAL IVP PRN (16:30)
[2023-03-01] MEDS ORDERED: ACETAMINOPHEN 325 MG TABLET PO PRN (16:30)
[2023-03-01] MEDS ORDERED: MAG HYDROX/AL HYDROX/SIMETH 30 ML UDC PO PRN (16:30)
[2023-03-01] MEDS ORDERED: Z GUARD REMEDY 4 OZ OINT TP PRN (16:30)
[2023-03-01] MEDS ORDERED: FAMOTIDINE 40 MG TABLET PO PRN (16:30)
[2023-03-01 16:35] LABS: BILIRUBIN,URINE NEGATIVE (NEGATIVE); COLOR,URINE YELLOW (YELLOW); LEUKOCYTE ESTERASE ,URINE NEGATIVE (NEGATIVE); NITRITE, URINE NEGATIVE (NEGATIVE); PROTEIN,URINE 3+ mg/dl (NEGATIVE); UGLUCOSE NEGATIVE (NEGATIVE); UROBILINOGEN,URINE 0.2 EU/dL (0.2)
[2023-03-01] MEDS ORDERED: LORAZEPAM INJ 2 MG/ML VIAL ONE (16:35)
[2023-03-01 16:56] LABS: BACTERIA,URINE Few /HPF (None Seen); MUCUS,URINE Many /LPF (None Seen); RBC,URINE 0-2 /HPF (0-2)
--- NOTE | 2023-03-01 16:56 | NUR ---
GOT BED 119-2 ADMITTING INFORMED.
--- NOTE | 2023-03-01 17:22 | NUR ---
report given to osito for contiuatuion of care
[2023-03-01] MEDS ORDERED: DICYCLOMINE HCL 10 MG CAPSULE PO PRN (18:00)
--- NOTE | 2023-03-01 18:35 | NUR ---
RECEIVED PT FROM ER, TRANSFERRED BY WALTER, PT AWAKE, CONFUSED, LOUDLY TALKING. SKIN INTACT, EXCEPT ONE ROUND SCRATCH ON LEFT KNEE. PT BED BOUND, USES DIAPER, IV ACCESS LEFT AC 20G, NS AT 85ML/HR. WILL CONTINUE WITH ADMITTING PROCESS AND ENDORSE TO THE UPCOMING SHIFT.
--- NOTE | 2023-03-01 19:30 | NUR ---
MS RN OPENING NOTE RECEIVED REPORT FROM SAIDA SANTIAGO. PATIENT IN BED, AWAKE, ALERT AND ORIENTED TO SELF WITH CONFUSION. AFEBRILE AND NOT IN ANY FORM OF ACUTE DISTRESS. BREATHING EVEN AND NON LABORED. PER REPORT, PATIENT WAS ADMITTED D/T AMS AND INCREASED CONFUSION. EXPLAINED ADMISSION PROCESS WHICH INCLUDES SKIN ASSESSMENT. UPON INSPECTION, PATIENT WAS NOTED WITH SKIN TEAR ON R KNEE. WITH IV ACCESS ON LAC 20G AND STARTED WITH IV HYDRATION OF NS AT 75ML/HR. SAFETY MEASURES IN PLACE. KEPT BED IN LOCKED AND IN LOW POSITION. SIDE RAILS UP X2. ADVISED TO USE THE CALL LIGHT WHEN IN NEED OF ASSISTANCE.
[2023-03-01 20:00] VITALS: BP 155/97
[2023-03-01] MEDS: BACLOFEN (10 MG) 10 MG TABLET PO SCH ×2 (20:33→23:24)
[2023-03-01] MEDS: GABAPENTIN 300 MG CAPSULE PO SCH (20:33)
[2023-03-01] MEDS: DOCUSATE SODIUM 100 MG CAPSULE PO SCH (20:34)
[2023-03-01] MEDS: PANTOPRAZOLE 40 MG TABLET.DR PO SCH (20:34)
[2023-03-01] MEDS: IV NS 0.9% 1,000 ML IV PRN (20:45)
[2023-03-01] MEDS ORDERED: MEROPENEM 500 MG in IV NS 0.9% 50 ML IV SCH (21:00)
[2023-03-01] MEDS: MEROPENEM 1 G in IV NS 0.9% 100 ML IV SCH (21:21)
[2023-03-01] MEDS: oxyCODONE IR immediate release 5 MG PO SCH (23:24)
[2023-03-02 04:00] VITALS: BP 141/77
[2023-03-02] MEDS: MEROPENEM 1 G in IV NS 0.9% 100 ML IV SCH ×3 (04:07→21:56)
[2023-03-02] MEDS: GABAPENTIN 300 MG CAPSULE PO SCH ×3 (04:07→21:56)
[2023-03-02] MEDS: BACLOFEN (10 MG) 10 MG TABLET PO SCH ×3 (05:15→17:36)
[2023-03-02] MEDS: oxyCODONE IR immediate release 5 MG PO SCH ×3 (05:16→17:36)
--- NOTE | 2023-03-02 06:22 | NUR ---
LPN INSTRUCTOR CLOSING NOTE PATIENT IN BED, ASLEEP BUT EASY TO AROUSE AND RESPONDS TO VERBAL AND TACTILE STIMULI. AFEBRILE AND NOT IN ANY FORM OF ACUTE DISTRESS. BREATHING EVEN AND NON LABORED. WITH IV ACCESS ON LAC 20G RUNNING WITH IV HYDRATION OF NS AT 75ML/HR. AND R HAND 18G-SL. MEDICATED ORDERED. CONTINUOUS ON IV ATB FOR UTI, MONITORED FOR ANY ADVERSE REACTION. SAFETY MEASURES IN PLACE. KEPT BED IN LOCKED AND IN LOW POSITION. SIDE RAILS UP X2. ADVISED TO USE THE CALL LIGHT WHEN IN NEED OF ASSISTANCE. ALL NURSING NEEDS ATTENDED. ENDORSED TO INCOMING SHIFT FOR CONTINUITY OF CARE.
--- NOTE | 2023-03-02 07:00 | NUR ---
SECURITY SYSTEMS SPECIALIST OPENING NOTE PATIENT IN BED, ALERT, ORIENTED X1 WITH CONFUSION. ON ROOM AIR, BREATHING EVEN AND NON LABORED. IV ACCESS ON LAC 20G RUNNING WITH IV HYDRATION OF NS AT 75ML/HR. AND R HAND 18G-SL. SAFETY MEASURES IN PLACE. BED IN LOWEST AND LOCKED POSITION. SIDE RAILS UP X2. CALL LIGHT AND TABLE WITHIN REACH. WILL CONTINUE TO MONITOR.
[2023-03-02] MEDS: ATORVASTATIN 10 MG TABLET PO SCH (08:21)
[2023-03-02] MEDS: FUROSEMIDE 20 MG TABLET PO SCH (08:21)
[2023-03-02] MEDS: DOCUSATE SODIUM 100 MG CAPSULE PO SCH ×2 (08:21→16:22)
[2023-03-02] MEDS: PANTOPRAZOLE 40 MG TABLET.DR PO SCH ×2 (08:21→16:22)
[2023-03-02] MEDS: DULOXETINE HCL 30 MG CAPSULE.DR PO SCH (08:21)
[2023-03-02] MEDS: ASPIRIN EC 81 MG TABLET.DR PO SCH (08:21)
[2023-03-02] MEDS: AMLODIPINE BESYLATE 5 MG TABLET PO SCH (08:22)
[2023-03-02 08:56] LABS: BASOPHILS % (AUTO) 0.4 % (0.0-2.0); EOSINOPHILS % (AUTO) 1.1 % (0.0-6.0); HEMATOCRIT 37 % (33-45); HEMOGLOBIN 12.3 g/dL (11.5-14.8); LYMPHOCYTES # (AUTO) 2.1 K/uL (0.8-4.8); MEAN CORPUSCULAR HGB CONC 33 g/dl (31.0-36.0); MEAN CORPUSCULAR VOLUME 84 fL (82-100); MONOCYTES # (AUTO) 0.5 K/uL (0.1-1.30); MONOCYTES % (AUTO) 6.1 % (2.0-12.0); NEUTROPHILS # (AUTO) 5.5 K/uL (1.8-8.9); NEUTROPHILS % (AUTO) 67.4 % (43.0-81.0); PLATELET COUNT (AUTO) 338 K/uL (150-450); WHITE BLOOD COUNT (AUTO) 8.2 K/uL (4.3-11.0)
[2023-03-02 09:11] LABS: ALBUMIN 1.9 g/dL (3.4-5.0); BILIRUBIN,TOTAL 0.4 mg/dL (0.2-1.0); CALCIUM, SERUM 8.9 mg/dL (8.5-10.1); CREATININE 0.6 mg/dL (0.6-1.3); POTASSIUM 3.2 mmol/L (3.5-5.1); TOTAL PROTEIN, SERUM 5.5 g/dL (6.4-8.2)
[2023-03-02] MEDS: IV NS 0.9% 1,000 ML IV PRN (11:45)
[2023-03-02 16:00] VITALS: BP 155/44
--- NOTE | 2023-03-02 19:25 | NUR ---
RN CLOSING NOTE PATIENT IN BED, ALERT, ORIENTED X1 WITH CONFUSION. ON ROOM AIR, BREATHING EVEN AND NON LABORED. IV ACCESS ON LAC 20G RUNNING WITH IV HYDRATION OF NS AT 75ML/HR. AND R HAND 18G-SL. SAFETY MEASURES IN PLACE. ALL MEDICATIONS GIVEN PER MD ORDER, PATIENT WAS REPOSITIONED EVERY TWO HOURS. BED IN LOWEST AND LOCKED POSITION. SIDE RAILS UP X2. CALL LIGHT AND TABLE WITHIN REACH. REPORT GIVEN TO PROVISIONING ANALYST NURSE FOR CONTINUING OF CARE.
--- NOTE | 2023-03-02 19:40 | NUR ---
MS RN OPENING NOTE RECEIVED PATIENT IN BED, AWAKE. PT ALERT AND ORIENTED X1, WITH CONFUSION. ON ROOM AIR, BREATHING EVEN AND NON LABORED. IV ACCESS TO LEFT AC 20G RUNNING NS AT 75ML/HR. OTHER IV ACCESS TO RIGHT HAND 18G-SL. SAFETY MEASURES IN PLACE. BED IN LOWEST AND LOCKED POSITION. SIDE RAILS UP X2. CALL LIGHT AND TABLE WITHIN REACH. WILL CONTINUE TO MONITOR.
[2023-03-02 20:00] VITALS: BP 147/77
--- NOTE | 2023-03-03 | NUR ---
MS RN NOTE PT'S POTASSIUM LEVEL IS 3.2. EXPORT FREIGHT MANAGER JOHANNA CALLED, AND MADE AWARE. NO NEW ORDERS RECEIVED. PT REFUSES MEDS BACLOFEN, AND OXY IR. PT STATES THAT SHE IS NOT IN PAIN, AND TO STOP GIVING HER MEDS. MEDS RETURNED TO PIXIES.
[2023-03-03] MEDS: BACLOFEN (10 MG) 10 MG TABLET PO SCH ×6 (00:38→23:18)
[2023-03-03] MEDS: oxyCODONE IR immediate release 5 MG PO SCH ×6 (00:38→23:18)
[2023-03-03 04:00] VITALS: BP 147/77
[2023-03-03] MEDS: MEROPENEM 1 G in IV NS 0.9% 100 ML IV SCH ×3 (05:21→20:08)
[2023-03-03] MEDS: GABAPENTIN 300 MG CAPSULE PO SCH ×3 (05:55→20:08)
--- NOTE | 2023-03-03 06:00 | NUR ---
MS RN NOTE PT HAD ONE EPISODE OF EMESIS. PT WAS CLEANED, AND CHANGED. PT LEFT CLEAN AND DRY. NO RESPIRATORY DISTRESS NOTED. NO C/O PAIN AT THIS TIME. IV ACCESS TO LEFT AC #20G INTACT, AND PATENT. PT REFUSED AM MEDS BACLOFEN, AND OXY IR. SAFETY MEASURES IN PLACE: BED IN LOW POSITION, CALL LIGHT WITHIN REACH, SR UP X3, CALL LIGHT WITHIN REACH. WILL ENDORSE PT TO AM SHIFT NURSE FOR CONTINUITY OF CARE.
--- NOTE | 2023-03-03 07:20 | NUR ---
HOG TRADER OPENING NOTE PATIENT IS AWAKE AND CONFUSED. ON ROOM AIR 02 SAT 98%, NO S/S OF RESPIRATORY DISTRESS NOTED. PATIENT SCREAMING THE WORD"STOP". I ASKED PATIENT WHO IS SHE STOPPING. PATIENT STATED "I DON'T KNOW". HOB ELEVATED X4. IV SITE TO THE LAC#20G, AND RIGHT HAND #18G. INTACT. RUNNING IVF NS AT 75ML/HR. LEFT KNEE LIGHT STOCKING NOTED. SAFETY MEASURES IN PLACE. BED LOCKED TO THE LOWEST POSITION, CALL LIGHT, TABLE WITHIN REACH. CONT. TO MONITOR.
[2023-03-03] MEDS: IV NS 0.9% 1,000 ML IV PRN (08:07)
[2023-03-03] MEDS: DOCUSATE SODIUM 100 MG CAPSULE PO SCH ×2 (08:18→17:18)
[2023-03-03] MEDS: ATORVASTATIN 10 MG TABLET PO SCH (08:18)
[2023-03-03] MEDS: DULOXETINE HCL 30 MG CAPSULE.DR PO SCH (08:18)
[2023-03-03] MEDS: PANTOPRAZOLE 40 MG TABLET.DR PO SCH ×2 (08:19→17:18)
[2023-03-03] MEDS: ASPIRIN EC 81 MG TABLET.DR PO SCH (08:19)
[2023-03-03] MEDS: FUROSEMIDE 20 MG TABLET PO SCH (08:19)
[2023-03-03] MEDS: AMLODIPINE BESYLATE 5 MG TABLET PO SCH (08:21)
--- NOTE | 2023-03-03 11:00 | NUR ---
BASIC SCIENCES DEAN NOTE PATIENT REQUESTED MEDICATION FOR LEG CRAMP. MEDICATION GIVEN DIRECTED.
[2023-03-03 12:00] VITALS: BP 162/78
--- NOTE | 2023-03-03 17:34 | NUR ---
PLASTIC MAKER NOTE PATIENT C/O OF NAUSEA. MAALOX GIVEN.
--- NOTE | 2023-03-03 19:00 | NUR ---
RN OPENING NOTE RECEIVED PT AWAKE IN BED. PT IS A/O X 1-2, ABLE TO MAKE NEEDS KNOWN. PT IS IN RA TOLERATING WELL, BREATHING EVEN AND UNLABORED @THIS TIME. PT IV PRESENT IS ON THE LEFT AC #22G RUNNING NS @75MLS/HR & RIGHT HAND SALINE LOCK, BOTH INTACT, PATENT & FLUSHES WELL W/ NO S&SX OF INFILTRATION @ SITE NOTED. SAFETY MEASURES IS IN PLACE. BED IN LOWEST AND LOCKED POSITION. SIDE RAILS UP X 4, PADDED. BEDSIDE TABLE AND CALL LIGHTIS EASY REACH. BED ALARM IS ON. WILL CONTINUE TO MONITOR PT ACCORDINGLY.
[2023-03-03 20:00] VITALS: BP 142/103
[2023-03-04] MEDS: IV NS 0.9% 1,000 ML IV PRN (03:09)
[2023-03-04 04:00] VITALS: BP 125/65
[2023-03-04] MEDS: GABAPENTIN 300 MG CAPSULE PO SCH ×3 (04:06→21:49)
[2023-03-04] MEDS: MEROPENEM 1 G in IV NS 0.9% 100 ML IV SCH ×3 (04:06→22:02)
[2023-03-04] MEDS: BACLOFEN (10 MG) 10 MG TABLET PO SCH ×4 (05:05→23:10)
[2023-03-04] MEDS: oxyCODONE IR immediate release 5 MG PO SCH ×4 (05:05→23:10)
--- NOTE | 2023-03-04 06:35 | NUR ---
RN CLOSING NOTE PT AWAKE & RESTING COMFORTABLY IN BED. PT IS A/O X 1-2, RESPONSIVE AND FOLLOWS VERBAL COMMAND. PT IS IN RA W/ NO S&SX OF RESPIRATORY DISTRESS @THIS TIME. PT IV PRESENT IS ON THE RIGHT HAND RUNNING NS @75MLS/HR, INTACT, PATENT & FLUSHES WELL W/ NO S&SX OF INFILTRATION @ SITE NOTED. SAFETY MEASURES IS IN PLACE. BED IN LOWEST AND LOCKED POSITION. SIDE RAILS UP X 4, PADDED. BEDSIDE TABLE AND CALL LIGHT IS EASY REACH. BED ALARM IS ON. WILL ENDORSE TO THE NEXT SHIFT FOR DIPIKA.
--- NOTE | 2023-03-04 07:00 | NUR ---
PLATEN PRESS FEEDER OPENING NOTE PATIENT AWAKE, CALM, ABLE TO EXPRESS NEEDS AT PRESENT. ORIENTED TO NAME AND PLACE. ON ROOM AIR O2 SAT 92% DENIES SOB, AND DENIES PAIN. NO S/S OF RESPIRATORY DISTRESS NOTED. HOB ELEVATED, IV ACCESS INTACT. INFUSING NS@75ML/HR. SAFETY MEASURES IN PLACE BED LOCKED TO THE LOWEST POSITION, CALL LIGHT AND TABLE WITHIN REACH. CONT. TO MONITOR.
[2023-03-04] MEDS: PANTOPRAZOLE 40 MG TABLET.DR PO SCH ×2 (07:55→16:47)
[2023-03-04] MEDS: AMLODIPINE BESYLATE 5 MG TABLET PO SCH (08:24)
[2023-03-04] MEDS: FUROSEMIDE 20 MG TABLET PO SCH (08:25)
[2023-03-04] MEDS: DOCUSATE SODIUM 100 MG CAPSULE PO SCH ×2 (08:25→16:47)
[2023-03-04] MEDS: DULOXETINE HCL 30 MG CAPSULE.DR PO SCH (08:25)
[2023-03-04] MEDS: ATORVASTATIN 10 MG TABLET PO SCH (08:25)
[2023-03-04] MEDS: ASPIRIN EC 81 MG TABLET.DR PO SCH (08:25)
[2023-03-04 12:00] VITALS: BP 128/79
--- NOTE | 2023-03-04 18:00 | NUR ---
SYRUP MACHINE LABORER NOTE RIGHT HAND IV INFILTRATED. IV ACCESS REMOVED, CATHETER TIP INTACT. ICE PACK APPLIED. NEW IV ACCESS STARTED AT LEFT HAND #24G BY EN CINTRON. FLUSH WITHOUT DIFFICULTY, INFUSING NS@75ML/HR.
--- NOTE | 2023-03-04 18:32 | NUR ---
LETTER OF CREDIT DOCUMENT EXAMINER CLOSING PATIENT AWAKE, ALERT AND ORIENTED X2 FORGETFUL AT TIMES. PATIENT DENIES PAIN AT PRESENT. PATIENT ON ROOM AIR O2 SAT 94%, HOB ELEVATED NO S/S OF RESPIRATORY DISTRESS NOTED. IV ACCESS TO LF HAND #24G INFUSING NS@75ML/HR. SAFETY MEASURES IN PLACE, BED LOCKED TO THE LOWEST POSITION, CALL LIGHT AND TABLE WITHIN REACH. SIDE RAILS UP X4. PATIENT ATE 50% OF HER DINNER. I WILL ENDORSE TO THE FOLLOWING NURSE.
--- NOTE | 2023-03-04 19:00 | NUR ---
DELIVERY AND INSTALLATION SUBCONTRACTOR opening note PT resting in bed, asleep, in stable condition, A&Ox2, breathing even and unlabored, on RA, R hand 18G C/D/I, NS 75cc/ hr infusing well, all due meds given per MD orders, tolerated well, all basic needs met and anticipated, all safety measures are in place, will continue to monitor
[2023-03-04 20:00] VITALS: BP 151/91
--- NOTE | 2023-03-04 22:03 | NUR ---
noc rn note Mirna scanned. Primary nurse,Serge vo.
[2023-03-05] MEDS: IV NS 0.9% 1,000 ML IV PRN (02:52)
[2023-03-05 04:00] VITALS: BP 148/56
[2023-03-05] MEDS: GABAPENTIN 300 MG CAPSULE PO SCH ×2 (05:03→12:49)
[2023-03-05] MEDS: oxyCODONE IR immediate release 5 MG PO SCH ×2 (05:03→11:38)
[2023-03-05] MEDS: BACLOFEN (10 MG) 10 MG TABLET PO SCH ×2 (05:03→11:39)
[2023-03-05] MEDS: MEROPENEM 1 G in IV NS 0.9% 100 ML IV SCH ×2 (05:04→12:49)
--- NOTE | 2023-03-05 06:38 | NUR ---
CONTINUOUS IMPROVEMENT COORDINATOR closing note PT resting in bed, asleep, in stable condition, A&Ox2, breathing even and unlabored, on RA, R hand 18G C/D/I, NS 75cc/ hr infusing well, all due meds given per MD orders, tolerated well, all basic needs met and anticipated, all safety measures are in place, will continue to monitor
--- NOTE | 2023-03-05 07:45 | NUR ---
RN OPENING NOTES: RECEIVED PT ASLEEP, EASILY ROUSED, A/O X 2-3, WITH PERIODS OF CONFUSION. ABLE TO MAKE NEEDS KNOWN. PT IS ON RA WITN NO S/S OF SOB, DENIES PAIN THIS TIME. IV ACCESS AT LEFT THUMB #24 RUNNING NS @75MLS/HR INTACT, PATENT. ALL SAFETY MEASURES IS IN PLACE. BED IN LOWEST AND LOCKED POSITION, SIDE RAILS UP X 4, WILL CONT WITH PLAN OF CARE DURING SHIFT.
[2023-03-05] MEDS: PANTOPRAZOLE 40 MG TABLET.DR PO SCH (09:13)
[2023-03-05] MEDS: DULOXETINE HCL 30 MG CAPSULE.DR PO SCH (09:13)
[2023-03-05] MEDS: ASPIRIN EC 81 MG TABLET.DR PO SCH (09:13)
[2023-03-05] MEDS: AMLODIPINE BESYLATE 5 MG TABLET PO SCH (09:13)
[2023-03-05] MEDS: DOCUSATE SODIUM 100 MG CAPSULE PO SCH (09:13)
[2023-03-05] MEDS: FUROSEMIDE 20 MG TABLET PO SCH (09:14)
[2023-03-05] MEDS: ATORVASTATIN 10 MG TABLET PO SCH (09:14)
[2023-03-05 12:00] VITALS: BP 138/66
--- NOTE | 2023-03-05 14:00 | NUR ---
RN DC NOTES: PT STABLE FOR DC TO DON PER MD ORDER. AFEBRILE, VITALS WNL, ON RA WITH NO S/S OF SOB AND ACUTE DISTRESS NOTED. DC INSTRUCTIONS AND BELONGINGS SIGNED BY 2 RNS, PT UNABLE TO SIGN DUE TO CONFUSION. SKIN ISSUES PHOTOGRAPHED AND ATTACHED TO CHART. REPORT, MED RECORDS, BELONGINGS GIVEN TO EMT. IV ACCESS AND ID BAND REMOVED. PT LEFT UNIT VIA GURNEY, TRANSPORTATION IS [facility] UNIT # [id number].
== END 2023-03-05 15:18 | DRG 689 ==
LOC: ER 12:37 → TELE1 17:34 → MEDSG1 18:51
PROVIDERS: ADMIT Internal Medicine; ATTEND Internal Medicine
DX: N39.0 Urinary tract infection, site not specified (principal); G93.41 Metabolic encephalopathy; E44.0 Moderate protein-calorie malnutrition; F02.84 Dementia in other diseases classified elsewhere, unspecified severity, with anxiety; F02.83 Dementia in other diseases classified elsewhere, unspecified severity, with mood disturbance; G31.83 Neurocognitive disorder with Lewy bodies; M35.00 Sjogren syndrome, unspecified; E78.5 Hyperlipidemia, unspecified; F32.A Depression, unspecified; G89.29 Other chronic pain; I10 Essential (primary) hypertension; K21.9 Gastro-esophageal reflux disease without esophagitis; Z88.0 Allergy status to penicillin; Z87.440 Personal history of urinary (tract) infections; Z88.1 Allergy status to other antibiotic agents; M41.46 Neuromuscular scoliosis, lumbar region; M48.061 Spinal stenosis, lumbar region without neurogenic claudication; Z68.26 Body mass index [BMI] 26.0-26.9, adult; M51.36 Other intervertebral disc degeneration, lumbar region; Z20.822 Contact with and (suspected) exposure to COVID-19
CPT/HCPCS: 36415; 70450-TC; 71045-TC; 80048-TC; 80053-TC; 80076-TC; 81001; 82140-TC; 82607-TC; 83605-TC; 83735-TC; 84100-TC; 84443-TC; 84484-TC; 85025-TC; 85730-TC; 87040-TC; 87081-TC; 87086-TC; A4223; C9803; G0378; G0480; J2060; J2185; J7030

== ENCOUNTER 2023-10-03 19:27 | Inpatient (IN) | payer MEDICARE ==
[~2023-10-03] VITALS: Ht 149.9 cm; Wt 59.0 kg
[~2023-10-03 19:27] MED LIST changes: +ACET-868 PO; +ALBU8.5H8 IH; -ALPR0.255 PO; +AMLO-212 PO; +ASPI-1420 PO; +BACL10TA PO; +BISA10SU11 RC; +CLON0.1T PO; +DICL100G34 TP; +DOCU-141 PO; +DULO60CA64 PO; +FAMO40TA7 PO; +FURO20TA4 PO; +HYDR2TAB7 PO; +LIDO30AD10 TP; -LUBI24CA5 PO; +MAGN400O6 PO; +METO10TA3 PO; +NA P133E RC; +NALO4SPR; +ONDA4TAB11 PO; +OXYC15TA2 PO; +OXYC1TAB12 PO; +PANT40TA49 PO; +ROSU5TAB13 PO
[2023-10-03] MEDS ORDERED: PANTOPRAZOLE 40 MG VIAL ONE (19:53)
[2023-10-03] MEDS ORDERED: ONDANSETRON HCL/PF 4 MG/2 ML VIAL ONE ×3 (19:53→21:07)
[2023-10-03] MEDS ORDERED: diphenhydrAMINE HCL 50 MG/ML VIAL IV ONE ×2 (20:00→21:30)
[2023-10-03] MEDS ORDERED: IV NS 0.9% 1,000 ML BAG IV ONE (20:00)
[2023-10-03] MEDS ORDERED: PANTOPRAZOLE 40 MG VIAL IV ONE (20:00)
[2023-10-03] MEDS ORDERED: ONDANSETRON HCL/PF 4 MG/2 ML VIAL IVP ONE (20:00)
[2023-10-03 20:02] LABS: BASOPHILS # (AUTO) 0.1 K/uL (0.0-0.2); BASOPHILS % (AUTO) 0.3 % (0.0-2.0); EOSINOPHILS # (AUTO) 0.1 K/uL (0.0-0.7); EOSINOPHILS % (AUTO) 0.6 % (0.0-6.0); HEMATOCRIT 43 % (33-45); HEMOGLOBIN 14.2 g/dL (11.5-14.8); LYMPHOCYTES # (AUTO) 2.6 K/uL (0.8-4.8); LYMPHOCYTES % (AUTO) 14.4 % (20.0-44.0); MEAN CORPUSCULAR HEMOGLOBIN 30 PG (26.0-33.0); MEAN CORPUSCULAR HGB CONC 33 g/dl (31.0-36.0); MEAN CORPUSCULAR VOLUME 90 fL (82-100); MONOCYTES # (AUTO) 1.3 K/uL (0.1-1.30); MONOCYTES % (AUTO) 7.1 % (2.0-12.0); NEUTROPHILS # (AUTO) 13.9 K/uL (1.8-8.9); NEUTROPHILS % (AUTO) 77.6 % (43.0-81.0); PLATELET COUNT (AUTO) 399 K/uL (150-450); RED BLOOD CELL COUNT(AUTO) 4.78 MIL/uL (4.0-5.2); RED CELL DISTRIBUTION WIDTH 13.7 % (11.5-15.0)
[2023-10-03] MEDS ORDERED: diphenhydrAMINE HCL 50 MG/ML VIAL ONE ×2 (20:06→21:35)
[2023-10-03 20:20] LABS: ALANINE AMINOTRANSFERASE 21 U/L (12-78); ALBUMIN 2.4 g/dL (3.4-5.0); ALKALINE PHOSPHATASE 100 U/L (46-116); ASPARTATE AMINOTRANSFERASE 21 U/L (15-37); BILIRUBIN,DIRECT 0.1 mg/dL (0.0-0.2); BILIRUBIN,TOTAL 0.6 mg/dL (0.2-1.0); CALCIUM, SERUM 9.5 mg/dL (8.5-10.1); CARBON DIOXIDE 26 mmol/L (21-32); CHLORIDE 104 mmol/L (98-107); CREATININE 0.8 mg/dL (0.6-1.3); GLUCOSE 196 mg/dL (74-106); LIPASE 65 U/L (16-77); SODIUM SERUM 139 mmol/L (136-145); TOTAL PROTEIN, SERUM 6.5 g/dL (6.4-8.2); UREA NITROGEN, BLOOD 12 mg/dL (7-18)
[2023-10-03] MEDS ORDERED: ONDANSETRON HCL/PF - ER 4 MG/2 ML VIAL IV ONE ×2 (20:30→21:30)
[2023-10-03 20:36] LABS: POTASSIUM 2.8 mmol/L (3.5-5.1)
[2023-10-03] MEDS ORDERED: IV PREMIX D5 1/2NS + KCL 1,000 ML IV ONE ×2 (20:53→21:00)
[2023-10-03 21:14] LABS: APPEARANCE,URINE SLIGHTLY CLOUDY (CLEAR); BILIRUBIN,URINE 1+ (NEGATIVE); BLOOD, URINE 1+ Ery/uL (NEGATIVE); COLOR,URINE DARK YELLOW (YELLOW); KETONES,URINE TRACE mg/dL (NEGATIVE); LEUKOCYTE ESTERASE ,URINE NEGATIVE (NEGATIVE); NITRITE, URINE POSITIVE (NEGATIVE); PROTEIN,URINE 3+ mg/dl (NEGATIVE); UGLUCOSE NEGATIVE (NEGATIVE); UROBILINOGEN,URINE 0.2 EU/dL (0.2)
[2023-10-03] MEDS ORDERED: METOCLOPRAMIDE HCL 10 MG/2 ML VIAL IV ONE (21:30)
[2023-10-03] MEDS ORDERED: METOCLOPRAMIDE HCL 10 MG/2 ML VIAL ONE (21:35)
[2023-10-03 21:38] LABS: ADD URINE CULTURE YES; BACTERIA,URINE 3+ /HPF (None Seen); MUCUS,URINE Moderate /LPF (None Seen); TRIPLE PHOSPHATE CRYSTAL,UR Moderate /HPF (None Seen); WBC,URINE 0-2 /HPF (0-3)
[2023-10-03] MEDS ORDERED: hydrALAZINE HCL IV 20 MG VIAL ONE (21:52)
[2023-10-03] MEDS ORDERED: DOXYCYCLINE 100 MG in IV D5W 100 ML IV ONE (22:00)
[2023-10-03] MEDS ORDERED: hydrALAZINE HCL IV 20 MG VIAL IV ONE (22:00)
[2023-10-03] MEDS ORDERED: DOXYCYCLINE 100 MG VIAL ONE (22:01)
[2023-10-03] MEDS ORDERED: MAGNESIUM HYDROXIDE 30 ML UDC PO PRN (23:30)
[2023-10-03] MEDS ORDERED: ACETAMINOPHEN 325 MG TABLET PO PRN (23:30)
[2023-10-03] MEDS: LEVOFLOXACIN 500 MG /D5W 100ML 500 MG in PREMIX 1 EA IV SCH (23:30)
[2023-10-03] MEDS ORDERED: MAG HYDROX/AL HYDROX/SIMETH 30 ML UDC PO PRN (23:30)
[2023-10-04] MEDS: MORPHINE SULFATE INJ 2 MG/ML DISP.SYRIN IV PRN ×5 (01:25→20:25)
[2023-10-04] MEDS: ENOXAPARIN SODIUM 40 MG/0.4 ML DISP.SYRIN SQ SCH ×2 (01:26→21:29)
[2023-10-04] MEDS: ONDANSETRON HCL/PF 4 MG/2 ML VIAL IVP PRN ×2 (01:40→08:34)
[2023-10-04] MEDS: ZOLPIDEM TARTRATE 5 MG TABLET PO PRN ×2 (02:34→22:33)
[2023-10-04] MEDS: IV NS 0.9% 1,000 ML IV PRN ×2 (03:02→18:40)
[2023-10-04] MEDS ORDERED: LEVOFLOXACIN 500 MG /D5W 100ML 100 ML IV ONE (03:03)
[2023-10-04 07:16] LABS: BASOPHILS % (AUTO) 0.2 % (0.0-2.0); HEMATOCRIT 38 % (33-45); HEMOGLOBIN 12.5 g/dL (11.5-14.8); LYMPHOCYTES # (AUTO) 1.8 K/uL (0.8-4.8); LYMPHOCYTES % (AUTO) 9.9 % (20.0-44.0); MEAN CORPUSCULAR HEMOGLOBIN 30 PG (26.0-33.0); MEAN CORPUSCULAR HGB CONC 33 g/dl (31.0-36.0); MEAN CORPUSCULAR VOLUME 91 fL (82-100); MONOCYTES # (AUTO) 1.7 K/uL (0.1-1.30); MONOCYTES % (AUTO) 9.4 % (2.0-12.0); NEUTROPHILS # (AUTO) 14.6 K/uL (1.8-8.9); NEUTROPHILS % (AUTO) 80.5 % (43.0-81.0); PLATELET COUNT (AUTO) 357 K/uL (150-450); RED BLOOD CELL COUNT(AUTO) 4.17 MIL/uL (4.0-5.2); RED CELL DISTRIBUTION WIDTH 13.6 % (11.5-15.0); WHITE BLOOD COUNT (AUTO) 18.2 K/uL (4.3-11.0)
[2023-10-04 07:42] LABS: CREATININE 0.7 mg/dL (0.6-1.3); MAGNESIUM 1.9 mg/dL (1.8-2.4); PHOSPHORUS 4.5 mg/dL (2.5-4.9); POTASSIUM 3.3 mmol/L (3.5-5.1)
[2023-10-04 08:00] VITALS: BP 133/82; TEMP 99
[2023-10-04] MEDS ORDERED: METO25TA20 PO (08:14)
[2023-10-04] MEDS ORDERED: ALBU18HF2 INH (08:14)
[2023-10-04] MEDS ORDERED: ATOR20TA PO (08:14)
[2023-10-04] MEDS ORDERED: TELM40TA8 PO (08:14)
[2023-10-04] MEDS ORDERED: PANTOPRAZOLE 40 MG VIAL IV SCH (09:00)
[2023-10-04] MEDS: ALPRAZOLAM 0.25 MG TABLET PO PRN ×2 (11:30→19:30)
[2023-10-04 12:00] VITALS: BP 136/72; TEMP 99; O2SAT 94
[2023-10-04] MEDS ORDERED: MAGNESIUM HYDROXIDE 30 ML UDC PO PRN (13:30)
[2023-10-04] MEDS ORDERED: BISACODYL SUPP (10 MG) 10 MG/SUPP.RECT SUPP.RECT RC PRN (13:30)
[2023-10-04] MEDS ORDERED: NA PHOS,M-B/NA PHOS,DI-BA 1 EA ENEMA RC PRN (13:30)
[2023-10-04] MEDS ORDERED: NALOXONE HCL 4 MG SPRAY NS SCH (13:30)
[2023-10-04] MEDS: ONDANSETRON 4 MG TAB.RAPDIS PO PRN ×2 (13:54→20:26)
[2023-10-04] MEDS ORDERED: DICYCLOMINE HCL 10 MG CAPSULE PO PRN (14:00)
[2023-10-04] MEDS ORDERED: ALBUTEROL FS 2.5 MG/3 ML VIAL.NEB NEB PRN (14:00)
[2023-10-04] MEDS ORDERED: NALOXONE HCL 0.4 MG/ML AMPUL IV PRN (14:30)
[2023-10-04 16:00] VITALS: BP 132/70; TEMP 99; O2SAT 94
[2023-10-04] MEDS ORDERED: DICLOFENAC TOPICAL 100 GM TUBE TP SCH (17:00)
[2023-10-04] MEDS: PANTOPRAZOLE 40 MG TABLET.DR PO SCH (17:31)
[2023-10-04] MEDS: ACETAMINOPHEN 325 MG TABLET PO PRN (17:31)
[2023-10-04] MEDS: DOCUSATE SODIUM 100 MG CAPSULE PO SCH (17:32)
[2023-10-04] MEDS: METOPROLOL TARTRATE 25 MG TABLET PO SCH (17:32)
[2023-10-04 20:00] VITALS: BP 170/70; TEMP 99.3; O2SAT 96
[2023-10-04] MEDS: GABAPENTIN 300 MG CAPSULE PO SCH (20:24)
[2023-10-04] MEDS: LEVOFLOXACIN 500 MG /D5W 100ML 500 MG in PREMIX 1 EA IV SCH (21:29)
[2023-10-04] MEDS: POLYETHYLENE GLYCOL 3350 17 GM POWD.PACK PO SCH (21:29)
[2023-10-04 22:00] VITALS: BP 135/70; TEMP 99; O2SAT 96
[2023-10-05] VITALS: BP 138/63; TEMP 98.4; O2SAT 95
[2023-10-05 04:00] VITALS: BP 160/75; TEMP 98.8; O2SAT 95
[2023-10-05] MEDS: GABAPENTIN 300 MG CAPSULE PO SCH ×3 (04:03→21:25)
[2023-10-05] MEDS: MORPHINE SULFATE INJ 2 MG/ML DISP.SYRIN IV PRN ×5 (05:00→21:26)
[2023-10-05 07:06] LABS: BASOPHILS % (AUTO) 0.2 % (0.0-2.0); EOSINOPHILS # (AUTO) 0.2 K/uL (0.0-0.7); EOSINOPHILS % (AUTO) 1.6 % (0.0-6.0); HEMATOCRIT 36 % (33-45); HEMOGLOBIN 12.2 g/dL (11.5-14.8); LYMPHOCYTES # (AUTO) 1.7 K/uL (0.8-4.8); LYMPHOCYTES % (AUTO) 15.6 % (20.0-44.0); MEAN CORPUSCULAR HEMOGLOBIN 31 PG (26.0-33.0); MEAN CORPUSCULAR HGB CONC 34 g/dl (31.0-36.0); MEAN CORPUSCULAR VOLUME 90 fL (82-100); MONOCYTES % (AUTO) 9.5 % (2.0-12.0); NEUTROPHILS % (AUTO) 73.1 % (43.0-81.0); PLATELET COUNT (AUTO) 312 K/uL (150-450); RED BLOOD CELL COUNT(AUTO) 3.95 MIL/uL (4.0-5.2); RED CELL DISTRIBUTION WIDTH 13.6 % (11.5-15.0); WHITE BLOOD COUNT (AUTO) 10.9 K/uL (4.3-11.0)
[2023-10-05 07:57] LABS: CALCIUM, SERUM 8.3 mg/dL (8.5-10.1); CARBON DIOXIDE 20 mmol/L (21-32); CHLORIDE 107 mmol/L (98-107); CREATININE 0.6 mg/dL (0.6-1.3); GLUCOSE 77 mg/dL (74-106); MAGNESIUM 1.9 mg/dL (1.8-2.4); PHOSPHORUS 2.8 mg/dL (2.5-4.9); SODIUM SERUM 139 mmol/L (136-145); UREA NITROGEN, BLOOD 9 mg/dL (7-18)
[2023-10-05 08:00] VITALS: BP 152/86; TEMP 98.7; O2SAT 96
[2023-10-05] MEDS: METOCLOPRAMIDE HCL 10 MG TABLET PO SCH (08:38)
[2023-10-05] MEDS: PANTOPRAZOLE 40 MG TABLET.DR PO SCH ×2 (08:39→16:41)
[2023-10-05] MEDS: DULOXETINE HCL 30 MG CAPSULE.DR PO SCH (08:39)
[2023-10-05] MEDS: FUROSEMIDE 20 MG TABLET PO SCH (08:39)
[2023-10-05] MEDS: DOCUSATE SODIUM 100 MG CAPSULE PO SCH ×2 (08:39→16:42)
[2023-10-05] MEDS: ASPIRIN EC 81 MG TABLET.DR PO SCH (08:39)
[2023-10-05] MEDS: ATORVASTATIN 10 MG TABLET PO SCH (08:40)
[2023-10-05] MEDS: LOSARTAN POTASSIUM 50 MG TABLET PO SCH (08:45)
[2023-10-05] MEDS: METOPROLOL TARTRATE 25 MG TABLET PO SCH ×2 (08:45→16:42)
[2023-10-05] MEDS: ONDANSETRON 4 MG TAB.RAPDIS PO PRN ×3 (09:11→21:23)
[2023-10-05] MEDS: POTASSIUM CL. PREMIX PERIPHER. 50 ML IV SCH ×2 (10:31→11:00)
[2023-10-05] MEDS: ACETAMINOPHEN 325 MG TABLET PO PRN ×3 (11:10→20:13)
[2023-10-05] MEDS ORDERED: MENTHOL/CETYLPYRD (CEPACOL) 1 LOZ LOZENGE PO PRN ×2 (12:30→14:00)
[2023-10-05] MEDS ORDERED: ENSURE ENLIVE 237 ML LIQUID (VANILLA) PO PRN (14:00)
[2023-10-05] MEDS ORDERED: POTASSIUM CHLORIDE 20 MEQ TAB.PRT.SR PO ONE (15:30)
[2023-10-05 16:00] VITALS: BP 137/75; TEMP 98.4; O2SAT 100
[2023-10-05] MEDS: NYSTATIN (PYXIS) 500,000 UNIT/5 ML ORAL.SUSP PO SCH (16:42)
[2023-10-05] MEDS: FLUOCINONIDE 0.05% CREAM 60 GM TUBE TP SCH (16:45)
[2023-10-05 20:00] VITALS: BP 158/58; TEMP 98.4; O2SAT 100
[2023-10-05] MEDS: ENOXAPARIN SODIUM 40 MG/0.4 ML DISP.SYRIN SQ SCH (21:23)
[2023-10-05] MEDS: POLYETHYLENE GLYCOL 3350 17 GM POWD.PACK PO SCH (21:25)
[2023-10-05] MEDS: LEVOFLOXACIN 500 MG /D5W 100ML 500 MG in PREMIX 1 EA IV SCH (21:26)
[2023-10-05] MEDS: ZOLPIDEM TARTRATE 5 MG TABLET PO PRN (22:04)
[2023-10-06] VITALS: BP 158/58; TEMP 98.4; O2SAT 100
[2023-10-06] MEDS: ONDANSETRON 4 MG TAB.RAPDIS PO PRN ×3 (03:14→17:06)
[2023-10-06] MEDS: MORPHINE SULFATE INJ 2 MG/ML DISP.SYRIN IV PRN ×6 (03:20→20:58)
[2023-10-06 04:00] VITALS: BP 148/57; TEMP 98.4; O2SAT 100
[2023-10-06] MEDS: ACETAMINOPHEN 325 MG TABLET PO PRN (05:07)
[2023-10-06] MEDS: GABAPENTIN 300 MG CAPSULE PO SCH ×3 (05:51→20:17)
[2023-10-06 07:06] LABS: BASOPHILS % (AUTO) 0.2 % (0.0-2.0); EOSINOPHILS # (AUTO) 0.3 K/uL (0.0-0.7); EOSINOPHILS % (AUTO) 2.4 % (0.0-6.0); HEMATOCRIT 35 % (33-45); HEMOGLOBIN 11.8 g/dL (11.5-14.8); LYMPHOCYTES # (AUTO) 1.5 K/uL (0.8-4.8); LYMPHOCYTES % (AUTO) 12.9 % (20.0-44.0); MEAN CORPUSCULAR HEMOGLOBIN 30 PG (26.0-33.0); MEAN CORPUSCULAR HGB CONC 33 g/dl (31.0-36.0); MEAN CORPUSCULAR VOLUME 89 fL (82-100); MONOCYTES # (AUTO) 1.2 K/uL (0.1-1.30); MONOCYTES % (AUTO) 10.5 % (2.0-12.0); NEUTROPHILS # (AUTO) 8.3 K/uL (1.8-8.9); PLATELET COUNT (AUTO) 316 K/uL (150-450); RED BLOOD CELL COUNT(AUTO) 3.96 MIL/uL (4.0-5.2); RED CELL DISTRIBUTION WIDTH 13.5 % (11.5-15.0); WHITE BLOOD COUNT (AUTO) 11.2 K/uL (4.3-11.0)
[2023-10-06 07:40] LABS: CALCIUM, SERUM 8.3 mg/dL (8.5-10.1); CARBON DIOXIDE 23 mmol/L (21-32); CHLORIDE 105 mmol/L (98-107); CREATININE 0.6 mg/dL (0.6-1.3); GLUCOSE 96 mg/dL (74-106); MAGNESIUM 1.8 mg/dL (1.8-2.4); PHOSPHORUS 3.2 mg/dL (2.5-4.9); POTASSIUM 3.1 mmol/L (3.5-5.1); SODIUM SERUM 139 mmol/L (136-145); UREA NITROGEN, BLOOD 8 mg/dL (7-18)
[2023-10-06 08:00] VITALS: BP 156/61; TEMP 98.2; O2SAT 100
[2023-10-06] MEDS: PANTOPRAZOLE 40 MG TABLET.DR PO SCH ×2 (08:05→16:58)
[2023-10-06] MEDS: IV NS 0.9% 1,000 ML IV PRN (08:49)
[2023-10-06] MEDS: NYSTATIN (PYXIS) 500,000 UNIT/5 ML ORAL.SUSP PO SCH ×3 (09:19→16:58)
[2023-10-06] MEDS: METOCLOPRAMIDE HCL 10 MG TABLET PO SCH (09:19)
[2023-10-06] MEDS: DOCUSATE SODIUM 100 MG CAPSULE PO SCH ×2 (09:19→16:57)
[2023-10-06] MEDS: ASPIRIN EC 81 MG TABLET.DR PO SCH (09:20)
[2023-10-06] MEDS: ATORVASTATIN 10 MG TABLET PO SCH (09:20)
[2023-10-06] MEDS: FUROSEMIDE 20 MG TABLET PO SCH (09:20)
[2023-10-06] MEDS: LOSARTAN POTASSIUM 50 MG TABLET PO SCH (09:21)
[2023-10-06] MEDS: METOPROLOL TARTRATE 25 MG TABLET PO SCH ×2 (09:23→16:58)
[2023-10-06] MEDS: FLUOCINONIDE 0.05% CREAM 60 GM TUBE TP SCH ×2 (09:24→16:59)
[2023-10-06] MEDS: DULOXETINE HCL 30 MG CAPSULE.DR PO SCH (09:26)
[2023-10-06] MEDS: POTASSIUM CHLORIDE 20 MEQ POWDER PACKET NG SCH ×2 (11:30→11:39)
[2023-10-06 12:00] VITALS: BP 156/61; TEMP 98.2; O2SAT 97
[2023-10-06] MEDS ORDERED: POTASSIUM CHLORIDE 20 MEQ TAB.PRT.SR PO SCH (13:00)
[2023-10-06 16:00] VITALS: BP 149/63; TEMP 98.4; O2SAT 95
[2023-10-06] MEDS: ALPRAZOLAM 0.25 MG TABLET PO PRN (18:53)
[2023-10-06 20:00] VITALS: BP 153/68; TEMP 98.3; O2SAT 97
[2023-10-06] MEDS: ENOXAPARIN SODIUM 40 MG/0.4 ML DISP.SYRIN SQ SCH (21:08)
[2023-10-06] MEDS: LEVOFLOXACIN 500 MG /D5W 100ML 500 MG in PREMIX 1 EA IV SCH (21:09)
[2023-10-06] MEDS: POLYETHYLENE GLYCOL 3350 17 GM POWD.PACK PO SCH (21:09)
[2023-10-06] MEDS: ZOLPIDEM TARTRATE 5 MG TABLET PO PRN (21:23)
[2023-10-07] MEDS: MORPHINE SULFATE INJ 2 MG/ML DISP.SYRIN IV PRN ×5 (03:29→21:27)
[2023-10-07] MEDS: ONDANSETRON 4 MG TAB.RAPDIS PO PRN ×3 (03:40→16:16)
[2023-10-07 04:00] VITALS: BP 153/83; TEMP 98.6; O2SAT 98
[2023-10-07] MEDS: GABAPENTIN 300 MG CAPSULE PO SCH ×3 (05:12→20:29)
[2023-10-07] MEDS: IV NS 0.9% 1,000 ML IV PRN ×2 (05:53→18:55)
[2023-10-07] MEDS: PANTOPRAZOLE 40 MG TABLET.DR PO SCH ×2 (07:57→16:40)
[2023-10-07 08:00] VITALS: BP 136/82; TEMP 98.6; O2SAT 98
[2023-10-07] MEDS: ASPIRIN EC 81 MG TABLET.DR PO SCH (09:00)
[2023-10-07] MEDS: FUROSEMIDE 20 MG TABLET PO SCH ×2 (09:00→09:04)
[2023-10-07] MEDS: DOCUSATE SODIUM 100 MG CAPSULE PO SCH ×2 (09:03→16:41)
[2023-10-07] MEDS: DULOXETINE HCL 30 MG CAPSULE.DR PO SCH (09:03)
[2023-10-07] MEDS: METOPROLOL TARTRATE 25 MG TABLET PO SCH ×2 (09:04→16:40)
[2023-10-07] MEDS: METOCLOPRAMIDE HCL 10 MG TABLET PO SCH (09:04)
[2023-10-07] MEDS: ATORVASTATIN 10 MG TABLET PO SCH (09:05)
[2023-10-07] MEDS: LOSARTAN POTASSIUM 50 MG TABLET PO SCH (09:05)
[2023-10-07] MEDS: FLUOCINONIDE 0.05% CREAM 60 GM TUBE TP SCH ×2 (09:06→16:41)
[2023-10-07] MEDS: NYSTATIN (PYXIS) 500,000 UNIT/5 ML ORAL.SUSP PO SCH ×3 (09:06→16:39)
[2023-10-07 12:00] VITALS: BP 136/82; TEMP 98.6; O2SAT 97
[2023-10-07 16:00] VITALS: BP 136/82; TEMP 98.6; O2SAT 97
[2023-10-07] MEDS: ALPRAZOLAM 0.25 MG TABLET PO PRN (19:11)
[2023-10-07 20:00] VITALS: BP 119/76; TEMP 97.8; O2SAT 95
[2023-10-07] MEDS: ENOXAPARIN SODIUM 40 MG/0.4 ML DISP.SYRIN SQ SCH (21:26)
[2023-10-07] MEDS: LEVOFLOXACIN 500 MG /D5W 100ML 500 MG in PREMIX 1 EA IV SCH (21:27)
[2023-10-07] MEDS: POLYETHYLENE GLYCOL 3350 17 GM POWD.PACK PO SCH (21:48)
[2023-10-07] MEDS: ZOLPIDEM TARTRATE 5 MG TABLET PO PRN (23:01)
[2023-10-08] MEDS: GABAPENTIN 300 MG CAPSULE PO SCH ×3 (04:15→21:37)
[2023-10-08] MEDS: MORPHINE SULFATE INJ 2 MG/ML DISP.SYRIN IV PRN ×5 (04:17→22:13)
[2023-10-08 04:25] VITALS: BP 170/76; TEMP 97.5; O2SAT 96
[2023-10-08] MEDS: CLONIDINE HCL 0.1 MG TABLET PO PRN (04:30)
[2023-10-08 08:05] LABS: BASOPHILS % (AUTO) 0.2 % (0.0-2.0); EOSINOPHILS # (AUTO) 0.2 K/uL (0.0-0.7); EOSINOPHILS % (AUTO) 2.1 % (0.0-6.0); HEMATOCRIT 31 % (33-45); HEMOGLOBIN 10.5 g/dL (11.5-14.8); LYMPHOCYTES # (AUTO) 1.4 K/uL (0.8-4.8); LYMPHOCYTES % (AUTO) 15.8 % (20.0-44.0); MEAN CORPUSCULAR HEMOGLOBIN 30 PG (26.0-33.0); MEAN CORPUSCULAR HGB CONC 34 g/dl (31.0-36.0); MEAN CORPUSCULAR VOLUME 90 fL (82-100); MONOCYTES # (AUTO) 0.9 K/uL (0.1-1.30); NEUTROPHILS # (AUTO) 6.1 K/uL (1.8-8.9); NEUTROPHILS % (AUTO) 70.9 % (43.0-81.0); PLATELET COUNT (AUTO) 284 K/uL (150-450); RED BLOOD CELL COUNT(AUTO) 3.47 MIL/uL (4.0-5.2); RED CELL DISTRIBUTION WIDTH 13.3 % (11.5-15.0); WHITE BLOOD COUNT (AUTO) 8.6 K/uL (4.3-11.0)
[2023-10-08 08:11] VITALS: BP 132/82; TEMP 98.6; O2SAT 97
[2023-10-08 08:19] LABS: CALCIUM, SERUM 8.1 mg/dL (8.5-10.1); CREATININE 0.6 mg/dL (0.6-1.3); MAGNESIUM 1.9 mg/dL (1.8-2.4); PHOSPHORUS 4.1 mg/dL (2.5-4.9); POTASSIUM 2.9 mmol/L (3.5-5.1)
[2023-10-08] MEDS: LOSARTAN POTASSIUM 50 MG TABLET PO SCH (09:29)
[2023-10-08] MEDS: METOPROLOL TARTRATE 25 MG TABLET PO SCH ×2 (09:29→16:22)
[2023-10-08] MEDS: DOCUSATE SODIUM 100 MG CAPSULE PO SCH ×2 (09:29→16:22)
[2023-10-08] MEDS: ASPIRIN EC 81 MG TABLET.DR PO SCH (09:29)
[2023-10-08] MEDS: ONDANSETRON 4 MG TAB.RAPDIS PO PRN ×2 (09:30→17:55)
[2023-10-08] MEDS: ATORVASTATIN 10 MG TABLET PO SCH (09:30)
[2023-10-08] MEDS: FUROSEMIDE 20 MG TABLET PO SCH (09:30)
[2023-10-08] MEDS: DULOXETINE HCL 30 MG CAPSULE.DR PO SCH (09:30)
[2023-10-08] MEDS: NYSTATIN (PYXIS) 500,000 UNIT/5 ML ORAL.SUSP PO SCH ×3 (09:30→16:22)
[2023-10-08] MEDS: PANTOPRAZOLE 40 MG TABLET.DR PO SCH ×2 (09:30→16:22)
[2023-10-08] MEDS: METOCLOPRAMIDE HCL 10 MG TABLET PO SCH (09:31)
[2023-10-08] MEDS: FLUOCINONIDE 0.05% CREAM 60 GM TUBE TP SCH ×2 (09:31→16:23)
[2023-10-08] MEDS: POTASSIUM CHLORIDE 20 MEQ TAB.PRT.SR PO SCH ×3 (10:03→11:21)
[2023-10-08] MEDS: ALPRAZOLAM 0.25 MG TABLET PO PRN ×2 (13:58→22:12)
[2023-10-08 16:03] VITALS: BP 136/74; TEMP 98.6; O2SAT 97
[2023-10-08] MEDS: ACETAMINOPHEN 325 MG TABLET PO PRN ×2 (16:21→20:34)
[2023-10-08 20:00] VITALS: BP 147/55; TEMP 98.6; O2SAT 97
[2023-10-08] MEDS: POLYETHYLENE GLYCOL 3350 17 GM POWD.PACK PO SCH (21:37)
[2023-10-08] MEDS: ENOXAPARIN SODIUM 40 MG/0.4 ML DISP.SYRIN SQ SCH (21:39)
[2023-10-08] MEDS: ZOLPIDEM TARTRATE 5 MG TABLET PO PRN (22:22)
[2023-10-09 04:00] VITALS: BP 148/70; TEMP 98.7; O2SAT 97
[2023-10-09] MEDS: GABAPENTIN 300 MG CAPSULE PO SCH ×3 (04:28→21:19)
[2023-10-09] MEDS: MORPHINE SULFATE INJ 2 MG/ML DISP.SYRIN IV PRN ×4 (04:28→19:57)
[2023-10-09 07:06] LABS: BASOPHILS % (AUTO) 0.2 % (0.0-2.0); EOSINOPHILS # (AUTO) 0.3 K/uL (0.0-0.7); EOSINOPHILS % (AUTO) 3.7 % (0.0-6.0); HEMATOCRIT 32 % (33-45); HEMOGLOBIN 10.9 g/dL (11.5-14.8); LYMPHOCYTES # (AUTO) 2.4 K/uL (0.8-4.8); LYMPHOCYTES % (AUTO) 26.9 % (20.0-44.0); MEAN CORPUSCULAR HEMOGLOBIN 31 PG (26.0-33.0); MEAN CORPUSCULAR HGB CONC 34 g/dl (31.0-36.0); MEAN CORPUSCULAR VOLUME 90 fL (82-100); MONOCYTES % (AUTO) 11.9 % (2.0-12.0); NEUTROPHILS % (AUTO) 57.3 % (43.0-81.0); PLATELET COUNT (AUTO) 308 K/uL (150-450); RED BLOOD CELL COUNT(AUTO) 3.56 MIL/uL (4.0-5.2); RED CELL DISTRIBUTION WIDTH 13.6 % (11.5-15.0); WHITE BLOOD COUNT (AUTO) 8.8 K/uL (4.3-11.0)
[2023-10-09 07:25] LABS: CALCIUM, SERUM 8.5 mg/dL (8.5-10.1); CHLORIDE 106 mmol/L (98-107); CREATININE 0.6 mg/dL (0.6-1.3); GLUCOSE 87 mg/dL (74-106); MAGNESIUM 1.8 mg/dL (1.8-2.4); PHOSPHORUS 4.7 mg/dL (2.5-4.9); POTASSIUM 3.3 mmol/L (3.5-5.1); SODIUM SERUM 142 mmol/L (136-145); UREA NITROGEN, BLOOD 11 mg/dL (7-18)
[2023-10-09 08:00] VITALS: BP 145/74; TEMP 98.8; O2SAT 96
[2023-10-09 08:28] LABS: CARBON DIOXIDE 27 mmol/L (21-32)
[2023-10-09] MEDS: NYSTATIN (PYXIS) 500,000 UNIT/5 ML ORAL.SUSP PO SCH ×3 (08:47→17:15)
[2023-10-09] MEDS: LOSARTAN POTASSIUM 50 MG TABLET PO SCH (08:48)
[2023-10-09] MEDS: DOCUSATE SODIUM 100 MG CAPSULE PO SCH ×2 (08:48→17:15)
[2023-10-09] MEDS: METOCLOPRAMIDE HCL 10 MG TABLET PO SCH (08:48)
[2023-10-09] MEDS: ATORVASTATIN 10 MG TABLET PO SCH (08:48)
[2023-10-09] MEDS: DULOXETINE HCL 30 MG CAPSULE.DR PO SCH (08:48)
[2023-10-09] MEDS: ASPIRIN EC 81 MG TABLET.DR PO SCH (08:49)
[2023-10-09] MEDS: METOPROLOL TARTRATE 25 MG TABLET PO SCH ×2 (08:49→17:15)
[2023-10-09] MEDS: FUROSEMIDE 20 MG TABLET PO SCH (08:49)
[2023-10-09] MEDS: PANTOPRAZOLE 40 MG TABLET.DR PO SCH ×2 (08:52→17:15)
[2023-10-09] MEDS: FLUOCINONIDE 0.05% CREAM 60 GM TUBE TP SCH ×2 (09:04→17:13)
[2023-10-09] MEDS ORDERED: POTASSIUM CHLORIDE 20 MEQ TAB.PRT.SR PO SCH (11:00)
[2023-10-09] MEDS: ONDANSETRON 4 MG TAB.RAPDIS PO PRN ×2 (14:23→21:40)
[2023-10-09] MEDS: ACETAMINOPHEN 325 MG TABLET PO PRN (14:56)
[2023-10-09 20:44] VITALS: BP 190/90
[2023-10-09] MEDS: CLONIDINE HCL 0.1 MG TABLET PO PRN (20:44)
[2023-10-09] MEDS: ALPRAZOLAM 0.25 MG TABLET PO PRN (21:19)
[2023-10-09] MEDS: POLYETHYLENE GLYCOL 3350 17 GM POWD.PACK PO SCH (21:19)
[2023-10-09] MEDS: ENOXAPARIN SODIUM 40 MG/0.4 ML DISP.SYRIN SQ SCH (21:21)
== END 2023-10-09 23:40 | DRG 690 ==
LOC: ER 19:29 → TELE1 22:12 → MEDSG1 10-05 10:24
PROVIDERS: ADMIT Nurse Practitioner Acute Care; ATTEND Student in an Organized Health Care Education/Training Program
DX: N39.0 Urinary tract infection, site not specified (principal); E44.0 Moderate protein-calorie malnutrition; J90 Pleural effusion, not elsewhere classified; B37.0 Candidal stomatitis; K59.09 Other constipation; K44.9 Diaphragmatic hernia without obstruction or gangrene; K21.9 Gastro-esophageal reflux disease without esophagitis; B96.4 Proteus (mirabilis) (morganii) as the cause of diseases classified elsewhere; E78.5 Hyperlipidemia, unspecified; E87.6 Hypokalemia; I10 Essential (primary) hypertension; Z88.0 Allergy status to penicillin; G31.83 Neurocognitive disorder with Lewy bodies; F02.80 Dementia in other diseases classified elsewhere, unspecified severity, without behavioral disturbance, psychotic disturbance, mood disturbance, and anxiety; F41.9 Anxiety disorder, unspecified; M81.0 Age-related osteoporosis without current pathological fracture; D72.829 Elevated white blood cell count, unspecified; Z88.2 Allergy status to sulfonamides; R73.9 Hyperglycemia, unspecified; Z68.26 Body mass index [BMI] 26.0-26.9, adult; Z90.49 Acquired absence of other specified parts of digestive tract; M48.00 Spinal stenosis, site unspecified; M54.50 Low back pain, unspecified
CPT/HCPCS: 36415; 74018; 80048-TC; 80061-TC; 80076-TC; 81001; 82962-TC; 83690-TC; 83735-TC; 84100-TC; 85025-TC; 87086-TC; 97110-TC; 97116-TC; 97530-TC; A4216; A4223; C9113; G0378; J0360; J1200; J1650; J1956; J2270; J2405; J2765; J3480; J3490; J7030; J7050; J7060; J8597; Q0162